=== PATIENT | male | born 1960 | race Caucasian/White ===

== ENCOUNTER 2017-07-27 19:19 | Emergency (ER) | payer OTHER ==
[2017-07-27 19:24] VITALS: PULSE 86; RESP 18
[2017-07-27] MEDS ORDERED: GLUCAGON 1 MG/ML VIAL IVP STA (19:39)
[2017-07-27] MEDS ORDERED: METOCLOPRAMIDE 5 MG/ML 2 ML VIAL IVP STA (19:39)
--- NOTE | 2017-07-27 20:13 | ED ---
General Adult HPI <Urbano Villaseñor - Last Filed: 07/27/17 20:56> - General Source: patient, RN notes reviewed Mode of arrival: ambulatory Limitations: no limitations <Amanda Gonzales - Last Filed: 07/27/17 21:03> - General Chief complaint: ENT Stated complaint: food in throat Time Seen by Provider: 07/27/17 19:31 - History of Present Illness Initial comments: This is a 56-year-old male who presents to the emergency department with chief complaint of "food in throat." Patient states that at approximately 1:30 PM this afternoon patient was eating and had a piece of chicken stuck in his throat. Patient states that he has been trying to drink but nothing is going down. He states that he feels like it is stuck upper to mid sternal area. He describes the sensation as sore and burning. He states he has been spitting. Patient states that he has a history of esophageal impaction. He was seen by Dr. Cao, had an endoscopy and esophageal dilation. This occurred in 2015. Patient denies any nausea. He denies any difficulty breathing or shortness of breath. Denies fever, chills, abdominal pain, constipation or diarrhea, dysuria or hematuria, numbness or tingling, headache or vision changes. (Amanda Gonzales) - Related Data Home Medications Medication Instructions Recorded Confirmed No Known Home Medications [No 12/11/15 07/27/17 Known Home Medications] Allergies Allergy/AdvReac Type Severity Reaction Status Date / Time No Known Allergies Allergy Verified 07/27/17 19:58 Review of Systems ROS Other: All systems not noted in ROS Statement are negative. <Urbano Villaseñor - Last Filed: 07/27/17 20:56> ROS Other: All systems not noted in ROS Statement are negative. <Amanda Gonzales - Last Filed: 07/27/17 21:03> ROS Statement: Those systems with pertinent positive or pertinent negative responses have been documented in the HPI. Past Medical History Past Medical History: No Reported History History of Any Multi-Drug Resistant Organisms: None Reported Past Surgical History: No Surgical Hx Reported Past Psychological History: No Psychological Hx Reported Smoking Status: Current every day smoker Past Alcohol Use History: Occasional Past Drug Use History: None Reported <Amanda Gonzales - Last Filed: 07/27/17 21:03> General Exam <Urbano Villaseñor - Last Filed: 07/27/17 20:56> Limitations: no limitations <Amanda Gonzales - Last Filed: 07/27/17 21:03> - General Exam Comments Initial Comments: General: Awake and alert, well-developed; in no apparent distress. HEENT: Head atraumatic, normocephalic. Pupils are equal, round and reactive to light. Extraocular movements intact. Oropharynx moist. Neck: Supple. Normal ROM. Cardiovascular: Regular rate and rhythm. No murmurs, rubs or gallops. Chest symmetrical. Respiratory: Lungs clear to auscultation bilaterally. No wheezes, rales or rhonchi. Normal respiratory effort with no use of accessory muscles. Skin: [place], warm and dry without rashes or lesions. Neurological: Alert and oriented x3. CN II-XII grossly intact. Speech is fluent and answers are appropriate. No focal neuro deficits. Psychiatric: Normal mood and affect. No overt signs of depression or anxiety noted. (Amanda Gonzales) Course <Urbano Villaseñor - Last Filed: 07/27/17 20:56> <Amanda Gonzales - Last Filed: 07/27/17 21:03> Vital Signs 07/27/17 19:21 Temperature 97.8 F Pulse Rate 86 Respiratory 18 Rate Blood Pressure 139/87 O2 Sat by Pulse 98 Oximetry - Reevaluation(s) Reevaluation #1: 07/27/17 20:57 Patient reevaluated and felt like something moved however still was unable to drink and felt nauseated. Following this patient again reevaluated and did feel much better. Patient was able to tolerate a full glass of water without difficulty. Patient advised to follow-up with gastroenterology for scope. Patient advised liquid diet tomorrow. (Urbano Villaseñor) Medical Decision Making <Urbano Villaseñor - Last Filed: 07/27/17 20:56> - Radiology Data Radiology results: report reviewed <Amanda Gonzales - Last Filed: 07/27/17 21:03> - Medical Decision Making This is a 56-year-old male who presents to the emergency department for evaluation of esophageal impaction. Patient states that at approximately 1:30 this afternoon a piece of chicken became lodged in his esophagus. Patient states that he has a history of this happening multiple times in the past. While in the emergency department patient's vital signs are stable and he is in no acute distress. Patient was given glucagon and Reglan and had a delayed disimpaction response. Chest x-ray revealed no acute abnormalities. Patient was able to drink a glass of water without any difficulty. Patient will be discharged home and he is to follow-up with Dr. Cao. He is in agreement with plan and voices understanding. (Amanda Gonzales) - Radiology Data Chest x-ray impression: No acute cardiopulmonary process. No radiopaque foreign body appreciated. (Amanda Gonzales) Disposition <Urbano Villaseñor - Last Filed: 07/27/17 20:56> Time of Disposition: 21:03 <Amanda Gonzales - Last Filed: 07/27/17 21:03> Clinical Impression: Esophageal obstruction due to food impaction Disposition: HOME SELF-CARE Condition: Good Instructions: Esophageal Foreign Body (ED) Additional Instructions: Please follow up with gastroenterology, Dr. Cao within 1-2 days. Please follow up with primary care provider within 1-2 days. Return to emergency department if symptoms should worsen or any concerns arise. Referrals: None,Stated [Primary Care Provider] - 1-2 days Cyndy Cao MD [STAFF PHYSICIAN] - 1-2 days
--- NOTE | 2017-07-27 20:16 | XR ---
EXAMINATION TYPE: XR chest 2V DATE OF EXAM: 07/27/2017 COMPARISON: 12/12/2015 HISTORY: Retained foreign body approximately 3 inches below the sternal notch. Chest pain. TECHNIQUE: Frontal and lateral views of the chest are obtained. FINDINGS: There is no focal air space opacity, pleural effusion, or pneumothorax seen. The cardiac silhouette size is within normal limits. The osseous structures are intact. There is no radiopaque body seen. IMPRESSION: No acute cardiopulmonary process. No radiopaque foreign body appreciated.
[2017-07-27 21:19] VITALS: BP 141/86; TEMP 98.6
== END 2017-07-27 21:17 | disposition home or self-care (01) ==
LOC: EC 19:19
DX: T18.128A Food in esophagus causing other injury, initial encounter (principal); F17.200 Nicotine dependence, unspecified, uncomplicated
CPT/HCPCS: 71046; 99283; 96374; 96375; J1610; J2765

== ENCOUNTER 2020-12-12 10:51 | Emergency (ER) | payer OTHER ==
[2020-12-12 11:52] VITALS: BP 145/91; PULSE 61; RESP 16; TEMP 97.6
[2020-12-12 13:21] LABS: Appearance,Urine Clear (Clear); Bilirubin,Urine Negative (Negative); Blood,Urine Negative (Negative); Color,Urine Yellow; Glucose,Urine (UA) Negative (Negative); Ketones,Urine Negative (Negative); Leukocyte Esterase,Urine Negative (Negative); Nitrite,Urine Negative (Negative); PH, Urine 5.5 (5.0-8.0); Protein,Urine Negative (Negative); Specific Gravity,Urine 1.023 (1.001-1.035); Urobilinogen,Urine <2.0 mg/dL (<2.0)
== END 2020-12-12 13:10 ==
LOC: EC 10:51
DX: R10.9 Unspecified abdominal pain (principal); Z53.21 Procedure and treatment not carried out due to patient leaving prior to being seen by health care provider
CPT/HCPCS: 81003; 99499

== ENCOUNTER → 2024-01-16 | Outpatient (CLI) | payer OTHER ==
--- NOTE | 2024-01-16 20:37 | CT ---
EXAMINATION TYPE: CT abdomen pelvis w con CT DLP: 531.1 mGycm, Automated exposure control for dose reduction was used. DATE OF EXAM: 01/16/2024 2:18 PM COMPARISON: 09/24/2022 CLINICAL INDICATION:Male, 63 years old with history of K85.90 ACUTE PANCREATITIS WITHOUT NECROSIS OR INFE; pancreatitis TECHNIQUE: Axial CT abdomen pelvis w con;Sagittal and coronal reformats were created on a separate w orkstation. Contrast used:100 mL of Isovue 300 with IV Contrast, (none if empty) Oral contrast used: with Oral Contrast (none if empty) FINDINGS: LOWER CHEST: Unremarkable ABDOMEN diffuse low-attenuation with wedge-shaped area of increased attenuation possibly focal fatty sparing. LIVER: Unremarkable GALLBLADDER AND BILE DUCTS: Unremarkable. PANCREAS: Fluid collection arising from the pancreas measuring up to 10.4 x 9.0 cm.e hypodense area m ay be seen in the pancreatic tail series 3 image 28. SPLEEN: Unremarkable. ADRENAL GLANDS: Unremarkable. KIDNEYS AND URETERS: No evidence of hydronephrosis or renal calculus. The ureters are unremarkable. PELVIS BLADDER: Unremarkable REPRODUCTIVE: Unremarkable. ABDOMEN & PELVIS STOMACH AND BOWEL: No evidence of bowel obstruction. PERITONEUM/RETROPERITONEUM: No evidence of pneumoperitoneum or free fluid. VASCULATURE: No evidence of aortic aneurysm. MUSCULOSKELETAL: No acute osseous abnormalities LYMPH NODES: No gross evidence for lymphadenopathy. SOFT TISSUE/ABDOMINAL WALL: Unremarkable IMPRESSION: Large fluid collection appearing to arise from the pancreas. Underlying mass not excluded in the panc reatic tail. Further evaluation with MRI MRCP with IV contrast pancreatic mass protocol. Findings new from 09/24/2022 could be sequela of mass versus sequela prior pancreatitis correlate with history. Hepatic steatosis with focal fatty narrowing.
== END | disposition home or self-care (01) ==
LOC: RADCTMAIN 09:22
PROVIDERS: ATTEND Internal Medicine Gastroenterology
DX: K85.90 Acute pancreatitis without necrosis or infection, unspecified (principal); K76.0 Fatty (change of) liver, not elsewhere classified
CPT/HCPCS: 74177; Q9967

== ENCOUNTER 2024-03-30 07:56 | Inpatient (IN) | payer OTHER ==
[2024-03-30] MEDS: ONDANSETRON 4 MG/2 ML VIAL IVP STA ×2 (08:28→12:26)
[2024-03-30] MEDS: SODIUM CHLORIDE 0.9% 1,000 ML IV STA (08:28)
[2024-03-30] MEDS: HYDROmorphone 0.5 MG/0.5 ML SYRINGE IVP STA (08:30)
--- NOTE | 2024-03-30 08:36 | ED ---
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 Patient states he has not drank in over a year. Patient states he recently had the stent removed at [facility] 1 week ago and now he is experiencing epigastric pain it feels like the pain he had prior to having the stent placed. Patient states has been vomiting for 12 hours. Patient [place] any fever chills. Patient denies any chest pain. Patient denies any shortness of breath. - Related Data Home Medications Medication Instructions Recorded Confirmed Ibuprofen [Motrin Ib] 800 mg PO TID PRN 03/30/24 03/30/24 oxyCODONE-APAP 10-325MG [Percocet 1 tab PO Q6HR PRN 03/30/24 03/30/24 10-325 mg] Allergies Allergy/AdvReac Type Severity Reaction Status Date / Time No Known Allergies Allergy Verified 03/30/24 11:06 Review of Systems ROS Statement: Those systems with pertinent positive or pertinent negative responses have been documented in the HPI. ROS Other: All systems not noted in ROS Statement are negative. Past Medical History Past Medical History: No Reported History History of Any Multi-Drug Resistant Organisms: None Reported Past Surgical History: No Surgical Hx Reported Additional Past Surgical History / Comment(s): abd surgery Past Psychological History: No Psychological Hx Reported Smoking Status: Current every day smoker Past Alcohol Use History: Occasional Past Drug Use History: Marijuana General Exam - General Exam Comments Initial Comments: GENERAL: Patient is well-developed and well-nourished. Patient is nontoxic and well- hydrated and is in mild distress. ENT: Neck is soft and supple. No significant lymphadenopathy is noted. Oropharynx is clear. Moist mucous membranes. Neck has full range of motion without eliciting any pain. EYES: The sclera were anicteric and conjunctiva were pink and moist. Extraocular movements were intact and pupils were equal round and reactive to light. Eyelids were unremarkable. PULMONARY: Unlabored respirations. Good breath sounds bilaterally. No audible rales rhonchi or wheezing was noted. CARDIOVASCULAR: There is a regular rate and rhythm without any murmurs gallops or rubs. ABDOMEN: Epigastric abdominal pain SKIN: Skin is clear with no lesions or rashes and otherwise unremarkable. NEUROLOGIC: Patient is alert and oriented x3. Cranial nerves II through XII are grossly intact. Motor and sensory are also intact. Normal speech, volume and content. Symmetrical smile. MUSCULOSKELETAL: Normal extremities with adequate strength and full range of motion. LYMPHATICS: No significant lymphadenopathy is noted PSYCHIATRIC: Normal psychiatric evaluation. Limitations: no limitations Course Vital Signs 03/30/24 03/30/24 07:59 09:08 Temperature 97.6 F Pulse Rate 86 52 L Respiratory 20 18 Rate Blood Pressure 138/107 121/81 O2 Sat by Pulse 99 97 Oximetry Medical Decision Making - Medical Decision Making EKG is interpreted by myself but EKG shows a sinus bradycardia 59 bpm VA interval 143 QRS 110 QT interval is 466 QTc is 465. Patient's EKG shows T wave inversion in 1 2 and aVL as well as V1 and V3 Was pt. sent in by a medical professional or institution (LEILA Maki, PRINCIPAL MECHANICAL ENGINEER, urgent care, hospital, or fpc...) When possible be specific @ -No Did you speak to anyone other than the patient for history (EMS, parent, family, police, friend...)? What history was obtained from this source @ -No Did you review nursing and triage notes (agree or disagree)? Why? @ -I reviewed and agree with nursing and triage notes Were old charts reviewed (outside hosp., previous admission, EMS record, old EKG, old radiological studies, urgent care reports/EKG's, fpc records)? Report findings @ -No old charts were reviewed Differential Diagnosis? @ -Differential Abdominal Pain Men: Appendicitis, cholecystitis, diverticulosis, ischemic bowel, pancreatitis, hepatitis, UTI, gastroenteritis, AAA, incarcerated hernia, bowel obstruction, constipation, inflammatory bowel, hepatitis, peptic ulcer disease, splenic infarction, perforated viscus, testicular torsion, this is not meant to be an all-inclusive list EKG interpreted by me (3pts min.). @ -As above X-rays interpreted by me (1pt min.). @ -None done CT interpreted by me (1pt min.). @ -CT of the abdomen shows acute on chronic pancreatitis that shows a smaller pseudocyst. U/S interpreted by me (1pt. min.). @ -None done What testing was considered but not performed or refused? (CT, X-rays, U/S, labs)? Why? @ -None What meds were considered but not given or refused? Why? @ -None Did you discuss the management of the patient with other professionals (professionals i.e. , PA, PRINCIPAL MECHANICAL ENGINEER, lab, RT, psych nurse, nephrology social worker, tobacco checkout clerk, teacher, flight deck officer, manager of case)? Give summary @ -I spoke to Dr. Isaac about the case she reviewed the CAT scan and decided that the patient could be kept here. I spoke with Dr. Morris and he agreed to admit the patient admit the patient recommending orders Was smoking cessation discussed for >3mins.? @ -No Was critical care preformed (if so, how long)? @ -No Were there social determinants of health that impacted care today? How? (Homelessness, low income, unemployed, alcoholism, drug addiction, transportation, low edu. Level, literacy, decrease access to med. care, fpc, rehab)? @ -No Was there de-escalation of care discussed even if they declined (Discuss DNR or withdrawal of care, Hospice)? DNR status @ -No What co-morbidities impacted this encounter? (DM, HTN, Smoking, COPD, CAD, Cancer, CVA, ARF, Chemo, Hep., AIDS, mental health diagnosis, sleep apnea, morbid obesity)? @ -None Was patient admitted / discharged? Hospital course, mention meds given and route, prescriptions, significant lab abnormalities, going to OR and other pertinent info. @ -Patient will be admitted to the hospital to consult to Dr. Marlin Isaac is aware Dr. Jacobs is aware. I wrote admitting orders. Undiagnosed new problem with uncertain prognosis? @ -No Drug Therapy requiring intensive monitoring for toxicity (Heparin, Nitro, Insulin, Cardizem)? @ -No Were any procedures done? @ -No Diagnosis/symptom? @ -Acute on chronic pancreatitis Acute, or Chronic, or Acute on Chronic? @ -Acute on chronic Uncomplicated (without systemic symptoms) or Complicated (systemic symptoms)? @ -Complicated Side effects of treatment? @ -No Exacerbation, Progression, or Severe Exacerbation? @ -No Poses a threat to life or bodily function? How? (Chest pain, [place], [place], pneumonia, PE, COPD, DKA, ARF, appy, cholecystitis, CVA, Diverticulitis, Homicidal, S uicidal, threat to staff... and all critical care pts) @ -Yes this could lead to further complications and electrolyte abnormalities. - Lab Data Result diagrams: 03/30/24 08:31 03/30/24 08:31 Lab Results 03/30/24 03/30/24 03/30/24 Range/Units 08:31 08:31 08:31 WBC 11.8 H (3.8-10.6) k/uL RBC 3.80 L (4.30-5.90) m/uL Hgb 11.3 L (13.0-17.5) gm/dL Hct 35.2 L (39.0-53.0) % MCV 92.5 (80.0-100.0) fL MCH 29.6 (25.0-35.0) pg MCHC 32.0 (31.0-37.0) g/dL RDW 15.6 H (11.5-15.5) % Plt Count 469 H (150-450) k/uL MPV 7.4 Neutrophils % 83 % Lymphocytes % 11 % Monocytes % 4 % Eosinophils % 1 % Basophils % 0 % Neutrophils # 9.7 H (1.3-7.7) k/uL Lymphocytes # 1.3 (1.0-4.8) k/uL Monocytes # 0.5 (0-1.0) k/uL Eosinophils # 0.1 (0-0.7) k/uL Basophils # 0.0 (0-0.2) k/uL Hypochromasia Slight Sodium 136 L (137-145) mmol/L Potassium 3.1 L (3.5-5.1) mmol/L Chloride 97 L (98-107) mmol/L Carbon Dioxide 32 H (22-30) mmol/L Anion Gap 7 mmol/L BUN 12 (9-20) mg/dL Creatinine 0.57 L (0.66-1.25) mg/dL Est GFR (CKD-EPI)AfAm >90 (>60 ml/min/1.73 sqM) Est GFR (CKD-EPI)NonAf >90 (>60 ml/min/1.73 sqM) Glucose 93 (74-99) mg/dL Plasma Lactic Acid Asif 1.3 (0.7-2.0) mmol/L Calcium 9.0 (8.4-10.2) mg/dL Total Bilirubin 0.5 (0.2-1.3) mg/dL AST 16 L (17-59) U/L ALT 9 (4-49) U/L Alkaline Phosphatase 89 (38-126) U/L Troponin I (0.000-0.034) ng/mL Total Protein 6.2 L (6.3-8.2) g/dL Albumin 3.2 L (3.5-5.0) g/dL Amylase 105 (30-110) U/L Lipase 361 H (23-300) U/L 03/30/24 Range/Units 09:11 WBC (3.8-10.6) k/uL RBC (4.30-5.90) m/uL Hgb (13.0-17.5) gm/dL Hct (39.0-53.0) % MCV (80.0-100.0) fL MCH (25.0-35.0) pg MCHC (31.0-37.0) g/dL RDW (11.5-15.5) % Plt Count (150-450) k/uL MPV Neutrophils % % Lymphocytes % % Monocytes % % Eosinophils % % Basophils % % Neutrophils # (1.3-7.7) k/uL Lymphocytes # (1.0-4.8) k/uL Monocytes # (0-1.0) k/uL Eosinophils # (0-0.7) k/uL Basophils # (0-0.2) k/uL Hypochromasia Sodium (137-145) mmol/L Potassium (3.5-5.1) mmol/L Chloride (98-107) mmol/L Carbon Dioxide (22-30) mmol/L Anion Gap mmol/L BUN (9-20) mg/dL Creatinine (0.66-1.25) mg/dL Est GFR (CKD-EPI)AfAm (>60 ml/min/1.73 sqM) Est GFR (CKD-EPI)NonAf (>60 ml/min/1.73 sqM) Glucose (74-99) mg/dL Plasma Lactic Acid Asif (0.7-2.0) mmol/L Calcium (8.4-10.2) mg/dL Total Bilirubin (0.2-1.3) mg/dL AST (17-59) U/L ALT (4-49) U/L Alkaline Phosphatase (38-126) U/L Troponin I <0.012 (0.000-0.034) ng/mL Total Protein (6.3-8.2) g/dL Albumin (3.5-5.0) g/dL Amylase (30-110) U/L Lipase (23-300) U/L Disposition Clinical Impression: Acute on chronic pancreatitis Disposition: ADMITTED IP TO THIS HOSP Referrals: Tres Jacobs MD [Primary Care Provider] - 1-2 days Time of Disposition: 11:53
[2024-03-30 08:41] LABS: Basophils % (A) 0 %; Eosinophils # (A) 0.1 k/uL (0-0.7); Eosinophils % (A) 1 %; HCT 35.2 % (39.0-53.0); HGB 11.3 gm/dL (13.0-17.5); Hypochromasia Slight; Lymphocytes # (A) 1.3 k/uL (1.0-4.8); Lymphocytes % (A) 11 %; MCH 29.6 pg (25.0-35.0); MCV 92.5 fL (80.0-100.0); Mean Platelet Volume 7.4; Monocytes # (A) 0.5 k/uL (0-1.0); Monocytes % (A) 4 %; Neutrophils # (A) 9.7 k/uL (1.3-7.7); Neutrophils % (A) 83 %; Platelet Count 469 k/uL (150-450); RDW 15.6 % (11.5-15.5); WBC 11.8 k/uL (3.8-10.6)
[2024-03-30 09:00] LABS: ALT 9 U/L (4-49); AST 16 U/L (17-59); African American GFR (CKD) >90 (>60 ml/min/1.73 sqM); Albumin 3.2 g/dL (3.5-5.0); Alkaline Phosphatase 89 U/L (38-126); Amylase 105 U/L (30-110); Anion Gap 7 mmol/L; Blood Urea Nitrogen 12 mg/dL (9-20); Carbon Dioxide 32 mmol/L (22-30); Chloride 97 mmol/L (98-107); Glucose 93 mg/dL (74-99); Lipase 361 U/L (23-300); Non-African American GFR(CKD) >90 (>60 ml/min/1.73 sqM); Potassium 3.1 mmol/L (3.5-5.1); Sodium 136 mmol/L (137-145); Total Bilirubin 0.5 mg/dL (0.2-1.3); Total Protein 6.2 g/dL (6.3-8.2)
--- NOTE | 2024-03-30 10:33 | CT ---
EXAMINATION TYPE: CT abdomen pelvis w con CT DLP: 657.7 mGycm, Automated exposure control for dose reduction was used. DATE OF EXAM: 03/30/2024 10:11 AM COMPARISON: CT abdomen pelvis 01/16/2024, 09/24/2022 CLINICAL INDICATION:Male, 63 years old with history of History of pseudocyst and stent; Abdominal michael n s/p 8 days postop hx pseudocyst TECHNIQUE: Standard CT of the abdomen and pelvis following the administration of 100 cc of Isovue 3 00 IV contrast material. Coronal and sagittal reformats were performed. FINDINGS: LOWER CHEST: Posterior dependent subsegmental atelectasis is noted. ABDOMEN LIVER: There are at least 3 new hypodense lesions within the liver. Largest is within the left hepati c lobe measuring 1.5 cm (series 201, image 16). Additional lesion along the inferior margin of the ri ght hepatic lobe measuring 8 mm (series 201, image 32). Additional lesion within the right hepatic do me measuring 1 cm (series 201, image 11). GALLBLADDER AND BILE DUCTS: Unremarkable. PANCREAS: Atrophic appearance of the pancreas from prior examination with edematous appearance and in crease surrounding fluid. No pancreatic ductal dilatation. No pancreatic calcifications demonstrated. SPLEEN: Normal size with fluid extending into the hilum ADRENAL GLANDS: Unremarkable. KIDNEYS AND URETERS: No evidence of hydronephrosis or renal calculus. The kidneys enhance symmetrical ly. Contrast is demonstrated within both collecting systems on the delayed phase. PELVIS BLADDER: Incompletely distended but grossly unremarkable. REPRODUCTIVE: Coarse calcifications of the prostate gland are identified. ABDOMEN & PELVIS STOMACH AND BOWEL: New duodenal dilatation measuring up to 4.5 cm. Transition point identified involv ing the distal portion of the duodenum adjacent to pancreatic inflammatory changes (series 201, image 32). Distal colonic diverticulosis without evidence for acute diverticulitis. Decreased size of pseu docyst now measuring grossly 4.7 x 4.5 x 3.3 cm with drain identified which extends into the stomach. Surrounding inflammatory changes and ill-defined fluid along the inferior margin and lateral margin of the stomach has increased from prior examination. Wall thickening of the lesser curvature of the s tomach. PERITONEUM: No evidence of pneumoperitoneum. VASCULATURE: Minimal atherosclerotic calcifications are present throughout the abdominal aorta and it s branches. No evidence of aortic aneurysm. Portal venous system appears patent however there is sign ificant narrowing of the portal venous confluence due to surrounding fluid and inflammatory changes. Poor visualization of the splenic vein with surrounding collateral vessels in the splenic region. MUSCULOSKELETAL: No acute osseous abnormalities. Osteoarthritic changes of both hips. Degenerative ch anges of the spine. Most pronounced at L5-S1. Multilevel facet arthropathy lower lumbar spine. LYMPH NODES: No gross evidence for lymphadenopathy. SOFT TISSUE/ABDOMINAL WALL: Tiny fat filled umbilical hernia. IMPRESSION: 1. Acute on chronic pancreatitis with increased peripancreatic ill-defined fluid/inflammation. Decre ased size of previously seen perigastric pseudocyst with drainage catheter in place. 2. Proximal duodenal dilatation with focal transition point involving the distal duodenum suggesting possible stricture from pancreatic inflammation. 3. At least 3 new hypodense lesions measuring up to 1.5 cm within the liver suggesting possible small abscesses versus other etiologies. Consider further evaluation with MRI abdomen. 4. Focal narrowing of the portal venous confluence due to surrounding inflammatory changes/fluid. 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 [facility], , 03/30/2024 10:31 AM
[2024-03-30] MEDS: HYDROmorphone 1 MG/ML 1 ML SYRINGE IVP STA (12:25)
[2024-03-30] MEDS: SODIUM CHLORIDE 0.9% 1,000 ML IV ONE (12:26)
[2024-03-30] MEDS ORDERED: Potassium Replacement Protocol 1 EACH MISC MISCELLANE PRN (14:05)
[2024-03-30] MEDS: POTASSIUM CHLORIDE 10 MEQ in WATER FOR INJECTION 1 100ML.BAG IVPB SCH (14:26)
[2024-03-30] MEDS: PANTOPRAZOLE 40 MG/10 ML VIAL IVP SCH (14:28)
--- NOTE | 2024-03-30 14:45 | P.CONS ---
History of Present Illness - Reason for Consult Consult date: 03/30/24 Acute on chronic pancreatitis, liver lesions Requesting physician: Matheus Corona - Chief Complaint Abdominal pain - History of Present Illness Pleasant 63-year-old male who presented to the emergency department complaining of abdominal pain. 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 He states he has had abdominal pain for last 10 months and that is why he has been following with Dr. Lewis's office and [facility]. He had a biliary stent placed maybe a couple months ago he is not sure which she had both a metal and plastic stent placed. He had the metal stent removed about a week ago at [facility] with a plastic stent still in place. since then he states that he has been having abdominal pain but it had gotten worse yesterday. States last night started having increased epigastric pain so Meding. He had 5-6 episodes of vomiting green bile-like and dark emesis. Last emesis was at 11:00 this morning very small amount. Epigastric pain feels like a similar episode when he had the acute pancreatitis prior to the stent being placed. He had a CT of the abdomen and pelvis with contrast reporting acute on chronic pancreatitis, proximal duodenal dilation and 3 new liver lesions and possible splenic vein occlusion. This patient was recommended from gastroenterology to be a ER to ER transfer to [facility] however they were not accepting. Patient was admitted for treatment of pain and acute pancreatitis with gastroenterology on consult. Patient denies any alcohol in the last 1 years duration. Today's labs WBC 11.8 hemoglobin 11 hematocrit 35 platelet count 469,000 sodium 136 potassium 3.1 BUN 12 creatinine 0.57 total bilirubin 0.5 AST 16 ALT 9 alkaline phosphatase 89 amylase 105 lipase 361 Review of Systems REVIEW OF SYSTEMS: CARDIOPULMONARY: No chest pain or shortness of breath. Gastrointestinal: Abdominal pain. Nausea and vomiting. No hematemesis, coffee- ground emesis. No rectal bleeding, or melena. GENITOURINARY: No dysuria or hematuria. MUSCULOSKELETAL: Reports normal range of motion., Joint pain. SKIN: No rashes. No jaundice. ENDOCRINE: No chills, fevers. No excessive weight gain or loss. No polydipsia or polyuria. PSYCHIATRIC: Unremarkable. NEUROLOGY: No change in mental status. Denies dizziness, headache. ENT: Vision unremarkable. CONSTITUTIONAL: No recent weight loss. No fever, chills, night sweats. Past Medical History Past Medical History: No Reported History History of Any Multi-Drug Resistant Organisms: None Reported Past Surgical History: No Surgical Hx Reported Additional Past Surgical History / Comment(s): abd surgery Past Psychological History: No Psychological Hx Reported Smoking Status: Current every day smoker Past Alcohol Use History: Occasional Past Drug Use History: Marijuana Medications and Allergies Home Medications Medication Instructions Recorded Confirmed Type Ibuprofen [Motrin Ib] 800 mg PO TID PRN 03/30/24 03/30/24 History oxyCODONE-APAP 10-325MG [Percocet 1 tab PO Q6HR PRN 03/30/24 03/30/24 History 10-325 mg] Allergies Allergy/AdvReac Type Severity Reaction Status Date / Time No Known Allergies Allergy Verified 03/30/24 11:06 Physical Exam Vitals: Vital Signs Temp Pulse Resp BP Pulse Ox 03/30/24 12:00 60 18 126/87 97 03/30/24 09:08 52 L 18 121/81 97 03/30/24 07:59 97.6 F 86 20 138/107 99 Intake and Output 03/29/24 03/30/24 03/30/24 22:59 06:59 14:59 Other: Weight 58.513 kg General appearance: The patient is alert, oriented, appears in no acute distress. HET: Head is normocephalic and atraumatic. Conjunctiva pink. Sclera anicteric. Neck: Supple without lymphadenopathy. Trachea midline. Heart: Regular. Lungs: Equal expansion, normal respiratory effort. Abdomen: Soft, right upper quadrant and epigastric tenderness, nondistended. Skin: No rashes. No jaundice. Extremities: Normal skin color and turgor. No pedal edema. Neurological: No focal deficits. Alert and oriented x3. Results CBC & Chem 7: 03/30/24 08:31 03/30/24 08:31 Labs: Abnormal Lab Results - Last 24 Hours (Table) 03/30/24 03/30/24 Range/Units 08: 08:31 WBC 11.8 H (3.8-10.6) k/uL RBC 3.80 L (4.30-5.90) m/uL Hgb 11.3 L (13.0-17.5) gm/dL Hct 35.2 L (39.0-53.0) % RDW 15.6 H (11.5-15.5) % Plt Count 469 H (150-450) k/uL Neutrophils # 9.7 H (1.3-7.7) k/uL Sodium 136 L (137-145) mmol/L Potassium 3.1 L (3.5-5.1) mmol/L Chloride 97 L (98-107) mmol/L Carbon Dioxide 32 H (22-30) mmol/L Creatinine 0.57 L (0.66-1.25) mg/dL AST 16 L (17-59) U/L Total Protein 6.2 L (6.3-8.2) g/dL Albumin 3.2 L (3.5-5.0) g/dL Lipase 361 H (23-300) U/L Comments: CT abdomen pelvis with contrast Acute on chronic pancreatitis with increased peripancreatic ill-defined fluid /inflammation. Decreased size of previously seen perigastric pseudocyst with drainage catheter in place. Proximal duodenal dilation with focal transition point involving the distal duodenum suggesting possible stricture from pancreatic inflammation. At least 3 new hypodense lesions measuring up to 1.5 cm within the liver suggesting possible small abscesses versus other etiologies. Consider further evaluation with MRI abdomen. Focal narrowing of the portal venous confluence due to surrounding inflammatory changes/fluid. 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 Assessment and Plan (1) Acute on chronic pancreatitis Narrative/Plan: 63-year-old male history of alcohol pancreatitis with pseudocyst requiring previous stent which was partially removed at [facility] about a week ago. Now presenting back with right upper quadrant and epigastric pain with mildly elevated lipase and CT evidence for acute pancreatitis. Recently had a EGD with pseudocyst drainage and necrosectomy. Status post biliary stent with removal of metal stent with plastic stent in place. Recommended transfer to [facility] however they are not accepting. Will continue to treat symptomatically. IV hydration, pain medication and antiemetics. Current Visit: Yes Status: Acute Code(s): K85.90 - ACUTE PANCREATITIS WITHOUT NECROSIS OR INFECTION, UNSP; K86.1 - OTHER CHRONIC PANCREATITIS SNOMED Code(s): 453043820 (2) Liver lesion Narrative/Plan: Consider MRI of liver Current Visit: Yes Status: Acute Code(s): K76.9 - LIVER DISEASE, UNSPECIFIED SNOMED Code(s): 651355849 (3) Abdominal pain Current Visit: Yes Status: Acute Code(s): R10.9 - UNSPECIFIED ABDOMINAL PAIN SNOMED Code(s): 68794944 Plan: 1. Continue symptomatic and supportive care 2. Antiemetics as needed 3. Pain medication as needed 4. Aggressive IV hydration 5. Protonix for GI prophylaxis 6. Replace potassium per protocol 7. Keep n.p.o. 8. Repeat CBC, CMP tomorrow Thank you for this consultation, we will continue to follow Dr. Francisco Cao I agree with the dictator's note, documented as a scribe by Carolee Causey.
[2024-03-30] MEDS: HYDROmorphone 0.5 MG/0.5 ML SYRINGE IVP PRN (15:28)
[2024-03-30] MEDS: ONDANSETRON 4 MG/2 ML VIAL IVP PRN (20:30)
[2024-03-31 08:39] LABS: Basophils % (A) 0 %; Eosinophils # (A) 0.2 k/uL (0-0.7); Eosinophils % (A) 2 %; HCT 31.7 % (39.0-53.0); HGB 9.9 gm/dL (13.0-17.5); Hypochromasia Moderate; Lymphocytes # (A) 1.3 k/uL (1.0-4.8); Lymphocytes % (A) 17 %; MCH 29.4 pg (25.0-35.0); MCHC 31.3 g/dL (31.0-37.0); MCV 93.9 fL (80.0-100.0); Mean Platelet Volume 7.6; Monocytes # (A) 0.4 k/uL (0-1.0); Monocytes % (A) 5 %; Neutrophils # (A) 5.6 k/uL (1.3-7.7); Neutrophils % (A) 74 %; Platelet Count 384 k/uL (150-450); RBC 3.37 m/uL (4.30-5.90); RDW 15.9 % (11.5-15.5); WBC 7.6 k/uL (3.8-10.6)
[2024-03-31 08:58] LABS: ALT <6 U/L (4-49); AST 15 U/L (17-59); African American GFR (CKD) >90 (>60 ml/min/1.73 sqM); Albumin 2.4 g/dL (3.5-5.0); Albumin/Globulin Ratio 0.9; Alkaline Phosphatase 72 U/L (38-126); Anion Gap 11 mmol/L; Blood Urea Nitrogen 11 mg/dL (9-20); Calcium 8.2 mg/dL (8.4-10.2); Carbon Dioxide 21 mmol/L (22-30); Chloride 104 mmol/L (98-107); Globulin 2.7 g/dL; Glucose 61 mg/dL (74-99); Non-African American GFR(CKD) >90 (>60 ml/min/1.73 sqM); Potassium 3.6 mmol/L (3.5-5.1); Sodium 136 mmol/L (137-145); Total Bilirubin 0.4 mg/dL (0.2-1.3); Total Protein 5.1 g/dL (6.3-8.2)
[2024-03-31] MEDS: SODIUM CHLORIDE 0.9% 1,000 ML IV STA (12:42)
[2024-03-31 15:57] VITALS: BMI 18.5
--- NOTE | 2024-03-31 23:22 | PN ---
PROGRESS NOTE DATE OF SERVICE: 03/31/2024 CHIEF COMPLAINT: Chronic pancreatitis with nausea and vomiting, and hematemesis. HISTORY OF PRESENT ILLNESS: This gentleman is doing a bit better. Nausea is improved. He has had no fever or chills. Pain is improved. PHYSICAL EXAMINATION: CHEST: Clear. CARDIAC: Normal. ABDOMEN: Soft and less tender. Bowel sounds are present. IMPRESSION: 1. Chronic pancreatitis with pseudocyst. 2. Dehydration. 3. Nausea and vomiting. PLAN: Advance diet and continue to monitor his symptoms. MMODL / IJN: [id number] /
--- NOTE | 2024-04-01 02:25 | HP ---
HISTORY AND PHYSICAL CHIEF COMPLAINT: Intractable abdominal pain and vomiting. HISTORY OF PRESENT ILLNESS: Another admission for this 63-year-old white male. He came to emergency room. He developed acute epigastric pain with nausea and vomiting of coffee-ground appearing materials. He has a history of chronic alcoholism with a pancreatic pseudocyst which is being treated at [facility]. A stent had been placed between the cyst and his GI tract for internal management of the pancreatic pseudocyst. The stent was recently removed. He redeveloped the pain and came to the emergency room with assistance. He had no confusion, diarrhea, melena, hematochezia, etc. Past medical history, family history and personal and social histories are all otherwise unremarkable or unchanged. PHYSICAL EXAMINATION: VITAL SIGNS: Normal. HEAD, EARS, EYES, NOSE, MOUTH AND THROAT: Normal. CHEST: Clear. CARDIAC: Normal. ABDOMEN: Flat and tender over the epigastrium. There are no masses. Bowel sounds are present. EXTREMITIES: Normal. NEUROLOGICAL: Intact. IMPRESSION: 1. Intractable nausea, vomiting, and epigastric pain. 2. History of chronic pancreatitis with pseudocyst. PLAN: 1. Bed rest. 2. IV fluids. 3. Analgesics. 4. Follow laboratory studies. MMODL / IJN: [id number] /
--- NOTE | 2024-04-01 07:21 | P.PN ---
Subjective Progress Note Date: 03/31/24 (Late entry. Patient seen 03/31/2024 approximately 0815) Principal diagnosis: Pancreatitis Pleasant 63-year-old male who presented to the emergency department complaining of abdominal pain. 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 He states he has had abdominal pain for last 10 months and that is why he has been following with Dr. Lewis's office and [facility]. He had a biliary stent placed maybe a couple months ago he is not sure which she had both a metal and plastic stent placed. He had the metal stent removed about a week ago at [facility] with a plastic stent still in place. since then he states that he has been having abdominal pain but it had gotten worse yesterday. States last night started having increased epigastric pain so Meding. He had 5-6 episodes of vomiting green bile-like and dark emesis. Last emesis was at 11:00 this morning very small amount. Epigastric pain feels like a similar episode when he had the acute pancreatitis prior to the stent being placed. He had a CT of the abdomen and pelvis with contrast reporting acute on chronic pancreatitis, proximal duodenal dilation and 3 new liver lesions and possible splenic vein occlusion. This patient was recommended from gastroenterology to be a ER to ER transfer to [facility] however they were not accepting. Patient was admitted for treatment of pain and acute pancreatitis with gastroenterology on consult. Patient denies any alcohol in the last 1 years duration. Today's labs WBC 11.8 hemoglobin 11 hematocrit 35 platelet count 469,000 sodium 136 potassium 3.1 BUN 12 creatinine 0.57 total bilirubin 0.5 AST 16 ALT 9 alkaline phosphatase 89 amylase 105 lipase 361 03/31/2024 Patient was seen today as a follow-up for acute on chronic pancreatitis. States abdominal pain slightly better. No further nausea and vomiting. No diarrhea. Patient's afebrile. Potassium improved to 3.6 after supplementation. Otherwise labs unremarkable. Objective - Vital Signs Vital signs: Vital Signs Temp 97.6 F 04/01/24 01:15 Pulse 54 L 04/01/24 01:15 Resp 17 04/01/24 01:15 BP 124/75 04/01/24 01:15 Pulse Ox 100 04/01/24 01:15 FiO2 Intake & Output 03/31/24 04/01/24 04/01/24 18:59 06:59 18:59 Weight 58.513 kg Other: Voiding Method Toilet # Voids 4 2 - Exam General appearance: The patient is alert, oriented, appears in no acute distress. HET: Head is normocephalic and atraumatic. Conjunctiva pink. Sclera anicteric. Neck: Supple without lymphadenopathy. Abdomen: Soft, upper abdominal tenderness, nondistended with bowel sounds. No guarding or rigidity. Extremities: Normal skin color and turgor. No pedal edema Skin: No rashes, no jaundice Neurological: No focal deficits. Alert and oriented. - Labs CBC & Chem 7: 03/31/24 08:29 03/31/24 08:29 Labs: Abnormal Lab Results - Last 24 Hours (Table) 03/31/24 03/31/24 Range/Units 08:29 08:29 RBC 3.37 L (4.30-5.90) m/uL Hgb 9.9 L (13.0-17.5) gm/dL Hct 31.7 L (39.0-53.0) % RDW 15.9 H (11.5-15.5) % Sodium 136 L (137-145) mmol/L Carbon Dioxide 21 L (22-30) mmol/L Creatinine 0.59 L (0.66-1.25) mg/dL Glucose 61 L (74-99) mg/dL Calcium 8.2 L (8.4-10.2) mg/dL AST 15 L (17-59) U/L Total Protein 5.1 L (6.3-8.2) g/dL Albumin 2.4 L (3.5-5.0) g/dL Assessment and Plan (1) Acute on chronic pancreatitis Narrative/Plan: 63-year-old male history of alcohol pancreatitis with pseudocyst requiring pr evious stent which was partially removed at [facility] about a week ago. Now presenting back with right upper quadrant and epigastric pain with mildly elevated lipase and CT evidence for acute pancreatitis. Recently had a EGD with pseudocyst drainage and necrosectomy. Status post biliary stent with removal of metal stent with plastic stent in place. Recommended transfer to [facility] however they are not accepting. Will continue to treat symptomatically. IV hydration, pain medication and antiemetics. Current Visit: Yes Status: Acute Code(s): K85.90 - ACUTE PANCREATITIS WITHOUT NECROSIS OR INFECTION, UNSP; K86.1 - OTHER CHRONIC PANCREATITIS SNOMED Code(s): 136406078 (2) Liver lesion Narrative/Plan: Consider MRI of liver Current Visit: Yes Status: Acute Code(s): K76.9 - LIVER DISEASE, UNSPECIFIED SNOMED Code(s): 679572413 (3) Abdominal pain Current Visit: Yes Status: Acute Code(s): R10.9 - UNSPECIFIED ABDOMINAL PAIN SNOMED Code(s): 11631739 Plan: 1. Continue symptomatic and supportive care 2. Antiemetics as needed 3. Pain medication as needed 4. Aggressive IV hydration 5. Protonix for GI prophylaxis 6. Monitor electrolytes 7. Keep n.p.o. will add ice chips 8. No further workup indicated. Anticipate discharge in the next 48-72 hours. Patient instructed to follow-up with his pot puncher at [facility] Thank you for this consultation, we will continue to follow Dr. Francisco Cao I agree with the dictator's note, documented as a scribe by Carolee Causey.
[2024-04-01 11:08] LABS: Basophils % (A) 0 %; Eosinophils # (A) 0.2 k/uL (0-0.7); Eosinophils % (A) 2 %; HCT 31.5 % (39.0-53.0); HGB 9.9 gm/dL (13.0-17.5); Hypochromasia Moderate; Lymphocytes # (A) 1.1 k/uL (1.0-4.8); Lymphocytes % (A) 13 %; MCH 29.1 pg (25.0-35.0); MCHC 31.3 g/dL (31.0-37.0); MCV 92.9 fL (80.0-100.0); Mean Platelet Volume 7.4; Monocytes # (A) 0.4 k/uL (0-1.0); Monocytes % (A) 4 %; Neutrophils # (A) 6.4 k/uL (1.3-7.7); Neutrophils % (A) 79 %; Platelet Count 358 k/uL (150-450); RBC 3.39 m/uL (4.30-5.90); RDW 15.9 % (11.5-15.5); WBC 8.1 k/uL (3.8-10.6)
[2024-04-01 11:15] LABS: ALT <6 U/L (4-49); AST 13 U/L (17-59); African American GFR (CKD) >90 (>60 ml/min/1.73 sqM); Albumin 2.4 g/dL (3.5-5.0); Albumin/Globulin Ratio 0.9; Alkaline Phosphatase 71 U/L (38-126); Anion Gap 7 mmol/L; Blood Urea Nitrogen 6 mg/dL (9-20); Calcium 7.9 mg/dL (8.4-10.2); Carbon Dioxide 23 mmol/L (22-30); Chloride 103 mmol/L (98-107); Globulin 2.6 g/dL; Glucose 71 mg/dL (74-99); Non-African American GFR(CKD) >90 (>60 ml/min/1.73 sqM); Potassium 3.4 mmol/L (3.5-5.1); Sodium 133 mmol/L (137-145); Total Bilirubin 0.4 mg/dL (0.2-1.3)
[2024-04-01] MEDS: SODIUM CHLORIDE 0.9% 1,000 ML IV SCH (11:34)
[2024-04-01] MEDS: NICOTINE 14MG/24HR PATCH TRANSDERM SCH (13:13)
--- NOTE | 2024-04-01 13:50 | P.PN ---
Subjective Progress Note Date: 04/01/24 Principal diagnosis: Pancreatitis Pleasant 63-year-old male who presented to the emergency department complaining of abdominal pain. 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 He states he has had abdominal pain for last 10 months and that is why he has been following with Dr. Lewis's office and [facility]. He had a biliary stent placed maybe a couple months ago he is not sure which she had both a metal and plastic stent placed. He had the metal stent removed about a week ago at [facility] with a plastic stent still in place. since then he states that he has been having abdominal pain but it had gotten worse yesterday. States last night started having increased epigastric pain so Meding. He had 5-6 episodes of vomiting green bile-like and dark emesis. Last emesis was at 11:00 this morning very small amount. Epigastric pain feels like a similar episode when he had the acute pancreatitis prior to the stent being placed. He had a CT of the abdomen and pelvis with contrast reporting acute on chronic pancreatitis, proximal duodenal dilation and 3 new liver lesions and possible splenic vein occlusion. This patient was recommended from gastroenterology to be a ER to ER transfer to [facility] however they were not accepting. Patient was admitted for treatment of pain and acute pancreatitis with gastroenterology on consult. Patient denies any alcohol in the last 1 years duration. Today's labs WBC 11.8 hemoglobin 11 hematocrit 35 platelet count 469,000 sodium 136 potassium 3.1 BUN 12 creatinine 0.57 total bilirubin 0.5 AST 16 ALT 9 alkaline phosphatase 89 amylase 105 lipase 361 03/31/2024 Patient was seen today as a follow-up for acute on chronic pancreatitis. States abdominal pain slightly better. No further nausea and vomiting. No diarrhea. Patient's afebrile. Potassium improved to 3.6 after supplementation. Otherwise labs unremarkable. 04/01/2024 Patient seen and examined today as a follow-up. States they gave him a XL at [facility] when she yesterday evening and following that he started having abdominal pain mostly in the upper abdomen followed by emesis. Denies any coffee-ground or hematemesis. States he still has abdominal pain only had a small emesis this morning bile in color. Objective - Vital Signs Vital signs: Vital Signs Temp 97.6 F 04/01/24 01:15 Pulse 65 09/19/24 07:04 Resp 17 04/01/24 07:04 BP 134/79 04/01/24 07:04 Pulse Ox 96 04/01/24 07:04 FiO2 Intake & Output 03/31/24 04/01/24 04/01/24 18:59 06:59 18:59 Weight 58.513 kg Other: Voiding Method Toilet # Voids 4 2 - Exam General appearance: The patient is alert, oriented, appears in no acute distress. HET: Head is normocephalic and atraumatic. Conjunctiva pink. Sclera anicteric. Neck: Supple without lymphadenopathy. Abdomen: Soft, upper abdominal tenderness, nondistended with bowel sounds. No guarding or rigidity. Extremities: Normal skin color and turgor. No pedal edema Skin: No rashes, no jaundice Neurological: No focal deficits. Alert and oriented. - Labs CBC & Chem 7: 04/01/24 10:45 04/01/24 10:45 Assessment and Plan (1) Acute on chronic pancreatitis Narrative/Plan: 63-year-old male history of alcohol pancreatitis with pseudocyst requiring previous stent which was partially removed at [facility] about a week ago. Now presenting back with right upper quadrant and epigastric pain with mildly elevated lipase and CT evidence for acute pancreatitis. Recently had a EGD with pseudocyst drainage and necrosectomy. Status post biliary stent with removal of metal stent with plastic stent in place. Recommended transfer to [facility] however they are not accepting. Will continue to treat symptomatically. IV hydration, pain medication and antiemetics. Current Visit: Yes Status: Acute Code(s): K85.90 - ACUTE PANCREATITIS WITHOUT NECROSIS OR INFECTION, UNSP; K86.1 - OTHER CHRONIC PANCREATITIS SNOMED Code(s): 731413441 (2) Liver lesion Current Visit: Yes Status: Acute Code(s): K76.9 - LIVER DISEASE, UNSPECIFIED SNOMED Code(s): 290079651 (3) Abdominal pain Current Visit: Yes Status: Acute Code(s): R10.9 - UNSPECIFIED ABDOMINAL PAIN SNOMED Code(s): 26697151 Plan: 1. Continue symptomatic and supportive care 2. Antiemetics as needed 3. Pain medication as needed 4. Aggressive IV hydration 5. Protonix for GI prophylaxis 6. Replace potassium per protocol 7. Clear liquid diet ordered 8. No further workup indicated. Patient instructed to follow-up with his coin machine servicer repairer at [facility] Thank you for this consultation, we will continue to follow Dr. Francisco Cao I agree with the dictator's note, documented as a scribe by Carolee Causey.
[2024-04-01] MEDS: oxyCODONE-APAP 10-325MG 1 EACH TAB PO PRN (18:12)
[2024-04-01 18:34] LABS: Anisocytosis Slight; Basophils % (A) 0 %; Eosinophils # (A) 0.1 k/uL (0-0.7); Eosinophils % (A) 2 %; HCT 35.1 % (39.0-53.0); Hypochromasia Marked; Lymphocytes # (A) 1.4 k/uL (1.0-4.8); Lymphocytes % (A) 15 %; MCH 29.4 pg (25.0-35.0); MCHC 31.3 g/dL (31.0-37.0); MCV 93.9 fL (80.0-100.0); Mean Platelet Volume 7.6; Monocytes # (A) 0.4 k/uL (0-1.0); Monocytes % (A) 4 %; Neutrophils # (A) 7.1 k/uL (1.3-7.7); Neutrophils % (A) 77 %; Platelet Count 428 k/uL (150-450); RBC 3.74 m/uL (4.30-5.90); WBC 9.2 k/uL (3.8-10.6)
[2024-04-02 01:33] LABS: Amylase 48 U/L (23-121); Blood Urea Nitrogen 5.4 mg/dL (9.0-27.0); Carbon Dioxide 22.5 mmol/L (21.6-31.8); Chloride 100 mmol/L (96-109); Glucose 91 mg/dL (70-110); Lipase 27 U/L (14-60); Potassium 3.7 mmol/L (3.5-5.5); Sodium 135 mmol/L (135-145)
[2024-04-02 01:34] LABS: ALT 6 U/L (10-49); AST 11 U/L (14-35); Albumin 3.1 g/dL (3.8-4.9); Albumin/Globulin Ratio 1.11 Ratio (1.60-3.17); Alkaline Phosphatase 80 U/L (41-126); Calcium 8.5 mg/dL (8.7-10.3); Globulin 2.8 g/dL (1.6-3.3); Total Bilirubin <0.2 mg/dL (0.3-1.2); Total Protein 5.9 g/dL (6.2-8.2)
--- NOTE | 2024-04-02 08:06 | P.PN ---
Subjective Progress Note Date: 04/02/24 Principal diagnosis: Pancreatitis Pleasant 63-year-old male who presented to the emergency department complaining of abdominal pain. 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 He states he has had abdominal pain for last 10 months and that is why he has been following with Dr. Lewis's office and [facility]. He had a biliary stent placed maybe a couple months ago he is not sure which she had both a metal and plastic stent placed. He had the metal stent removed about a week ago at [facility] with a plastic stent still in place. since then he states that he has been having abdominal pain but it had gotten worse yesterday. States last night started having increased epigastric pain so Meding. He had 5-6 episodes of vomiting green bile-like and dark emesis. Last emesis was at 11:00 this morning very small amount. Epigastric pain feels like a similar episode when he had the acute pancreatitis prior to the stent being placed. He had a CT of the abdomen and pelvis with contrast reporting acute on chronic pancreatitis, proximal duodenal dilation and 3 new liver lesions and possible splenic vein occlusion. This patient was recommended from gastroenterology to be a ER to ER transfer to [facility] however they were not accepting. Patient was admitted for treatment of pain and acute pancreatitis with gastroenterology on consult. Patient denies any alcohol in the last 1 years duration. Today's labs WBC 11.8 hemoglobin 11 hematocrit 35 platelet count 469,000 sodium 136 potassium 3.1 BUN 12 creatinine 0.57 total bilirubin 0.5 AST 16 ALT 9 alkaline phosphatase 89 amylase 105 lipase 361 03/31/2024 Patient was seen today as a follow-up for acute on chronic pancreatitis. States abdominal pain slightly better. No further nausea and vomiting. No diarrhea. Patient's afebrile. Potassium improved to 3.6 after supplementation. Otherwise labs unremarkable. 04/01/2024 Patient seen and examined today as a follow-up. States they gave him a XL at [facility] when she yesterday evening and following that he started having abdominal pain mostly in the upper abdomen followed by emesis. Denies any coffee-ground or hematemesis. States he still has abdominal pain only had a small emesis this morning bile in color. 04/02/2024 Patient seen and examined today as a follow-up. States abdominal pain a little bit better, he is still requiring pain medication. He is tolerating clear liquid diet and is hungry requesting to eat. He has been afebrile. No nausea or vomiting. Objective - Vital Signs Vital signs: Vital Signs Temp 98.0 F 04/02/24 01:03 Pulse 62 04/02/24 01:03 Resp 17 04/02/24 01:03 BP 143/79 04/02/24 01:03 Pulse Ox 99 04/02/24 01:03 FiO2 Intake & Output 04/01/24 04/01/24 04/02/24 06:59 18:59 06:59 Intake Total 1560 Balance 1560 Intake: Intake, IV Titration 1560 Amount Sodium Chloride 0.9% 1, 1560 000 ml @ 130 mls/hr IV . Q7H42M [facility] Rx#:[id number] Other: Voiding Method Toilet # Voids 2 3 3 - Exam General appearance: The patient is alert, oriented, appears in no acute distress. HET: Head is normocephalic and atraumatic. Conjunctiva pink. Sclera anicteric. Neck: Supple without lymphadenopathy. Abdomen: Soft, upper abdominal tenderness, nondistended with bowel sounds. No guarding or rigidity. Extremities: Normal skin color and turgor. No pedal edema Skin: No rashes, no jaundice Neurological: No focal deficits. Alert and oriented. - Labs CBC & Chem 7: 04/01/24 18:07 04/01/24 18:07 Labs: Abnormal Lab Results - Last 24 Hours (Table) 04/01/24 04/01/24 04/01/24 Range/Units 10:45 10:45 18:07 RBC 3.39 L 3.74 L (4.30-5.90) m/uL Hgb 9.9 L 11.0 L (13.0-17.5) gm/dL Hct 31.5 L 35.1 L (39.0-53.0) % RDW 15.9 H 16.0 H (11.5-15.5) % Sodium 133 L (137-145) mmol/L Potassium 3.4 L (3.5-5.1) mmol/L Anion Gap (4.00-12.00) mmol/L BUN 6 L (9-20) mg/dL Creatinine 0.48 L (0.66-1.25) mg/dL BUN/Creatinine Ratio (12.00-20.00) Ratio Glucose 71 L (74-99) mg/dL Calcium 7.9 L (8.4-10.2) mg/dL Total Bilirubin (0.3-1.2) mg/dL AST 13 L (17-59) U/L ALT (10-49) U/L Total Protein 5.0 L (6.3-8.2) g/dL Albumin 2.4 L (3.5-5.0) g/dL Albumin/Globulin Ratio (1.60-3.17) Ratio / Range/Units 18:07 RBC (4.30-5.90) m/uL Hgb (13.0-17.5) gm/dL Hct (39.0-53.0) % RDW (11.5-15.5) % Sodium (137-145) mmol/L Potassium (3.5-5.1) mmol/L Anion Gap 12.50 H (4.00-12.00) mmol/L BUN 5.4 L (9-20) mg/dL Creatinine (0.66-1.25) mg/dL BUN/Creatinine Ratio 9.00 L (12.00-20.00) Ratio Glucose (74-99) mg/dL Calcium 8.5 L (8.4-10.2) mg/dL Total Bilirubin <0.2 L (0.3-1.2) mg/dL AST 11 L (17-59) U/L ALT 6 L (10-49) U/L Total Protein 5.9 L (6.3-8.2) g/dL Albumin 3.1 L (3.5-5.0) g/dL Albumin/Globulin Ratio 1.11 L (1.60-3.17) Ratio Assessment and Plan (1) Acute on chronic pancreatitis Narrative/Plan: 63-year-old male history of alcohol pancreatitis with pseudocyst requiring previous stent which was partially removed at [facility] about a week ago. Now presenting back with right upper quadrant and epigastric pain with m ildly elevated lipase and CT evidence for acute pancreatitis. Recently had a EGD with pseudocyst drainage and necrosectomy. Status post biliary stent with removal of metal stent with plastic stent in place. Recommended transfer to [facility] however they are not accepting. Will continue to treat symptomatically. IV hydration, pain medication and antiemetics. Current Visit: Yes Status: Acute Code(s): K85.90 - ACUTE PANCREATITIS WITHOUT NECROSIS OR INFECTION, UNSP; K86.1 - OTHER CHRONIC PANCREATITIS SNOMED Code(s): 540809269 (2) Liver lesion Current Visit: Yes Status: Acute Code(s): K76.9 - LIVER DISEASE, UNSPECIFIED SNOMED Code(s): 452111234 (3) Abdominal pain Current Visit: Yes Status: Acute Code(s): R10.9 - UNSPECIFIED ABDOMINAL PAIN SNOMED Code(s): 44698142 Plan: 1. Continue symptomatic and supportive care 2. Antiemetics as needed 3. Pain medication as needed, transition to oral pain medication for discharge 4. Advance to low-fat diet 5. Protonix for GI prophylaxis 6. Replace potassium per protocol 7. No further workup indicated. Patient instructed to follow-up with his gas troenterologist at [facility] within the next 1 to 2 weeks 8. Patient is cleared from gastroenterology for discharge Thank you for this consultation, we will sign off at this time. Dr. Francisco Cao I agree with the dictator's note, documented as a scribe by Carolee Causey.
[2024-04-02 08:54] VITALS: RESP 18
[2024-04-02 14:39] VITALS: BP 108/67; PULSE 63; TEMP 98.2
--- NOTE | 2024-04-03 10:22 | PN ---
PROGRESS NOTE DATE OF SERVICE: 04/01/2024 CHIEF COMPLAINT: Epigastric pain, chronic pancreatitis with pancreatic pseudocyst. HISTORY OF PRESENT ILLNESS: This gentleman was not vomiting, but he is still having significant amounts of epigastric pain. PHYSICAL EXAMINATION: ABDOMEN: He is tender over the epigastrium. There are no masses. CHEST: Clear. CARDIAC: Normal. VITAL SIGNS: Normal. IMPRESSION: Chronic pancreatitis and pancreatic pseudocyst. PLAN: Try advancing diet and increase activity while repeating labs. MMODL / IJN: [id number] /
--- NOTE | 2024-04-03 11:43 | DS ---
DISCHARGE SUMMARY CHIEF COMPLAINT: Epigastric pain and vomiting. HISTORY OF PRESENT ILLNESS AND PHYSICAL EXAM: Details of this man's history and physical can be found in the initial workup. LABORATORY STUDIES: While he was in the hospital, he had laboratory studies, details of which can be found in the laboratory section of his chart. COURSE IN HOSPITAL: After admission, he was placed on bedrest and started on intravenous fluids and analgesics. His pain slowly subsided. His pancreatic enzymes remained normal. He was given a trial on oral feedings which failed. The following day, the pain was improving and it was felt that his diet could be advanced as he could go home. He will go home on his regular diet and activity and follow up at [facility] for further management of his pancreatic pseudocyst. FINAL DIAGNOSES: 1. Pancreatic pseudocyst. 2. Intractable epigastric pain. 3. Intractable nausea and vomiting. OPERATIONS: None. CONSULTATIONS: None. He is improved. MMANANYAL / CHAITANYAN: [id number] /
== END 2024-04-02 16:49 | disposition home or self-care (01) | DRG 282 ==
LOC: EC 07:56 → 5NMEDONC 11:55 → UNDOADMIN 11:55 → 5NMEDONC 12:12 → INTOOBSV 12:12 → OBSVTOIN 12:13 → 5NMEDONC 15:33 → 4SSUR 18:14
PROVIDERS: ADMIT Family Medicine; ATTEND Family Medicine
DX: K85.20 Alcohol induced acute pancreatitis without necrosis or infection (principal); I82.890 Acute embolism and thrombosis of other specified veins; K92.0 Hematemesis; F10.20 Alcohol dependence, uncomplicated; K86.0 Alcohol-induced chronic pancreatitis; K76.9 Liver disease, unspecified; K86.3 Pseudocyst of pancreas; F17.210 Nicotine dependence, cigarettes, uncomplicated; E86.0 Dehydration; Z97.8 Presence of other specified devices
CPT/HCPCS: 36415; 74177; 80053; 82150; 83605; 83690; 84484; 85025; 93005; 96361; 96365; 96366; 96375; 96376; 99285

== ENCOUNTER 2024-04-12 18:00 | Observation (INO) | payer OTHER ==
[2024-04-12 19:25] LABS: Anisocytosis Slight; Basophils % (A) 0 %; Eosinophils # (A) 0.2 k/uL (0-0.7); Eosinophils % (A) 1 %; HCT 37.4 % (39.0-53.0); HGB 11.9 gm/dL (13.0-17.5); Hypochromasia Slight; Lymphocytes # (A) 1.5 k/uL (1.0-4.8); Lymphocytes % (A) 11 %; MCH 29.4 pg (25.0-35.0); MCHC 31.9 g/dL (31.0-37.0); MCV 92.3 fL (80.0-100.0); Mean Platelet Volume 7.6; Monocytes # (A) 0.6 k/uL (0-1.0); Monocytes % (A) 4 %; Neutrophils # (A) 11.7 k/uL (1.3-7.7); Neutrophils % (A) 82 %; Platelet Count 461 k/uL (150-450); RBC 4.05 m/uL (4.30-5.90); RDW 16.6 % (11.5-15.5); WBC 14.2 k/uL (3.8-10.6)
[2024-04-12 19:36] LABS: ALT 7 U/L (4-49); AST 18 U/L (17-59); African American GFR (CKD) >90 (>60 ml/min/1.73 sqM); Albumin 3.9 g/dL (3.5-5.0); Alkaline Phosphatase 76 U/L (38-126); Amylase 48 U/L (30-110); Anion Gap 15 mmol/L; Blood Urea Nitrogen 20 mg/dL (9-20); Calcium 9.8 mg/dL (8.4-10.2); Carbon Dioxide 26 mmol/L (22-30); Chloride 94 mmol/L (98-107); Glucose 86 mg/dL (74-99); Lipase 71 U/L (23-300); Non-African American GFR(CKD) >90 (>60 ml/min/1.73 sqM); Potassium 4.1 mmol/L (3.5-5.1); Sodium 135 mmol/L (137-145); Total Protein 7.3 g/dL (6.3-8.2)
[2024-04-12 19:38] LABS: Partial Thromboplastin Time 30.2 sec (22.0-30.0); Prothrombin Time 11.1 sec (10.0-12.5)
[2024-04-12] MEDS: ONDANSETRON 4 MG/2 ML VIAL IVP STA (19:51)
--- NOTE | 2024-04-12 19:51 | XR ---
EXAMINATION TYPE: XR KUB DATE OF EXAM: 04/12/2024 7:23 PM CLINICAL INDICATION: Male, 63 years old with history of abdominal pain; COMPARISON: None. TECHNIQUE: One radiographic view of the abdomen was obtained. FINDINGS: The bowel gas pattern is nonspecific without dilated loops of small or large bowel. . Fecal material and gas are demonstrated throughout the colon and rectum. There is no evidence for organomegaly or pneumoperitoneum. The osseous structures are intact. No ab normal calcifications are present. . Degeneration changes of the hips. Left upper quadrant catheter t ube. Multilevel degeneration changes spine. IMPRESSION: Nonspecific bowel gas pattern without radiographic evidence for acute process. [facility], , 04/12/2024 7:48 PM
[2024-04-12] MEDS: HYDROmorphone 1 MG/ML 1 ML SYRINGE IVP STA (19:54)
[2024-04-12] MEDS: SODIUM CHLORIDE 0.9% 1,000 ML IV ONE ×2 (19:55)
[2024-04-12] MEDS ORDERED: NALOXONE 0.4 MG/ML 1 ML VIAL IV PRN (21:10)
--- NOTE | 2024-04-12 21:10 | ED ---
Abdominal Pain HPI - General Chief Complaint: Abdominal Pain Stated Complaint: abd pain Time Seen by Provider: 04/12/24 18:45 Source: patient Mode of arrival: ambulatory Limitations: no limitations - History of Present Illness Initial Comments: 63-year-old male presents emergency department reporting abdominal pain. Patient recently discharged for same. He does have a history of chronic pancreatitis. States he has been taking his oxycodone and friend at home however cannot hold down these medications. He did have a stent placed at [facility] 2 months ago which was removed 3 weeks ago. He was hospitalized at our facility after that. Reports that since he has been discharged his symptoms never improved. He has lost 8 pounds. He denies fevers. No hematemesis. Does admit to dark green emesis. No black or bloody stools. No other alleviating, precipitating or modifying factors - Related Data Allergies Allergy/AdvReac Type Severity Reaction Status Date / Time No Known Allergies Allergy Verified 04/12/24 19:57 Review of Systems ROS Statement: Those systems with pertinent positive or pertinent negative responses have been documented in the HPI. ROS Other: All systems not noted in ROS Statement are negative. Past Medical History Past Medical History: No Reported History Additional Past Medical History / Comment(s): pancreatitis. cyst on pancreas History of Any Multi-Drug Resistant Organisms: None Reported Past Surgical History: No Surgical Hx Reported Additional Past Surgical History / Comment(s): abd surgery stent placed in January 2024 removed 03/2024 Past Psychological History: No Psychological Hx Reported Smoking Status: Current every day smoker Past Alcohol Use History: Occasional Past Drug Use History: Marijuana General Exam Limitations: no limitations General appearance: alert, in no apparent distress Head exam: Present: atraumatic, normocephalic, normal inspection Eye exam: Present: normal appearance, PERRL, EOMI. Absent: scleral icterus, conjunctival injection, periorbital swelling ENT exam: Present: normal exam, mucous membranes moist Neck exam: Present: normal inspection. Absent: tenderness, meningismus, lymphadenopathy Respiratory exam: Present: normal lung sounds bilaterally. Absent: respiratory distress, wheezes, rales, rhonchi, stridor Cardiovascular Exam: Present: regular rate, normal rhythm, normal heart sounds. Absent: systolic murmur, diastolic murmur, rubs, gallop, clicks GI/Abdominal exam: Present: soft, tenderness (Epigastric), normal bowel sounds. Absent: distended, guarding, rebound, rigid Extremities exam: Present: normal inspection, full ROM, normal capillary refill. Absent: tenderness, pedal edema, joint swelling, calf tenderness Back exam: Present: normal inspection Neurological exam: Present: alert, oriented X3, CN II-XII intact Psychiatric exam: Present: normal affect, normal mood Skin exam: Present: warm, dry, intact, normal color. Absent: rash Course Vital Signs 04/12/24 04/12/24 04/13/24 18:40 20:00 01:56 Temperature 97.4 F L 97.3 F L Pulse Rate 55 L 64 59 L Respiratory 20 16 18 Rate Blood Pressure 87/66 104/62 120/78 O2 Sat by Pulse 95 98 100 Oximetry 04/13/24 04/13/24 04/13/24 08:14 12:28 14:21 Temperature Pulse Rate 77 74 80 Respiratory 20 18 18 Rate Blood Pressure 123/84 120/68 111/85 O2 Sat by Pulse 97 96 97 Oximetry Medical Decision Making - Medical Decision Making Was pt. sent in by a medical professional or institution (, PA, PROPOSAL MANAGER, urgent care, hospital, or retirement...) When possible be specific @ -No Did you speak to anyone other than the patient for history (EMS, parent, family, police, friend...)? What history was obtained from this source @ -No Did you review nursing and triage notes (agree or disagree)? Why? @ -I reviewed patient's recent discharge summary Were old charts reviewed (outside hosp., previous admission, EMS record, old EKG, old radiological studies, urgent care reports/EKG's, retirement records)? Report findings @ -I reviewed the patient's recent discharge summary Differential Diagnosis (chest pain, altered mental status, abdominal pain women, abdominal pain men, vaginal bleeding, weakness, fever, dyspnea, syncope, headache, dizziness, GI bleed, back pain, seizure, CVA, palpatations, mental health, musculoskeletal)? @ -Differential Abdominal Pain Men: Appendicitis, cholecystitis, diverticulosis, ischemic bowel, pancreatitis, hepatitis, UTI, gastroenteritis, AAA, incarcerated hernia, bowel obstruction, constipation, inflammatory bowel, hepatitis, peptic ulcer disease, splenic infarction, perforated viscus, testicular torsion, this is not meant to be an all-inclusive list EKG interpreted by me (3pts min.). @ -Yes and demonstrates normal sinus rhythm with a rate of 87. QRS 105. QTc of 416. X-rays interpreted by me (1pt min.). @ -None done CT interpreted by me (1pt min.). @ -None done U/S interpreted by me (1pt. min.). @ -None done What testing was considered but not performed or refused? (CT, X-rays, U/S, labs)? Why? @ -None What meds were considered but not given or refused? Why? @ -None Did you discuss the management of the patient with other professionals (karma mathis i.e. , PA, PROPOSAL MANAGER, lab, RT, psych nurse, clinical social worker, cardiology nurse practitioner, teacher, banking officer, director of casework services)? Give summary @ -Spoke with Dr. Jacobs who was agreeable to admitting the patient to our hospital Was smoking cessation discussed for >3mins.? @ -No Was critical care preformed (if so, how long)? @ -No Were there social determinants of health that impacted care today? How? (Homelessness, low income, unemployed, alcoholism, drug addiction, transportation, low edu. Level, literacy, decrease access to med. care, half-way, rehab)? @ -No Was there de-escalation of care discussed even if they declined (Discuss DNR or withdrawal of care, Hospice)? DNR status @ -No What co-morbidities impacted this encounter? (DM, HTN, Smoking, COPD, CAD, Cancer, CVA, ARF, Chemo, Hep., AIDS, mental health diagnosis, sleep apnea, morbid obesity)? @ -Chronic pancreatitis, pseudocyst Was patient admitted / discharged? Hospital course, mention meds given and route, prescriptions, significant lab abnormalities, going to OR and other pertinent info. @ -Upon arrival patient seen and evaluated in room 12. Thorough history and physical exam was performed. IV was established. Lab was conducted. Patient was given nausea and pain medications. I did discuss the results with Dr. Jacobs. He was agreeable to keeping the patient hospitalized at our facility for symptom control. Patient will eventually need to follow-up with GI at [facility]. Patient was agreeable to admission at our facility with the circumstances that he knows we do not have GI coverage. Undiagnosed new problem with uncertain prognosis? @ -No Drug Therapy requiring intensive monitoring for toxicity (Heparin, Nitro, Insulin, Cardizem)? @ -No Were any procedures done? @ -No Diagnosis/symptom? @ -Acute exacerbation of chronic epigastric abdominal pain, chronic pancreatitis Acute, or Chronic, or Acute on Chronic? @ -Acute on chronic Uncomplicated (without systemic symptoms) or Complicated (systemic symptoms)? @ -Complicated Side effects of treatment? @ -No Exacerbation, Progression, or Severe Exacerbation? @ -Yes Poses a threat to life or bodily function? How? (Chest pain, USA, CO, pneumonia, PE, COPD, DKA, ARF, appy, cholecystitis, CVA, Diverticulitis, Homicidal, Suicidal, threat to staff... and all critical care pts) @ -No - Lab Data Result diagrams: 04/13/24 06:23 04/13/24 06:23 Lab Results 04/12/24 04/12/24 04/12/24 Range/Units 19:17 19:17 19:17 WBC 14.2 H (3.8-10.6) k/uL RBC 4.05 L (4.30-5.90) m/uL Hgb 11.9 L (13.0-17.5) gm/dL Hct 37.4 L (39.0-53.0) % MCV 92.3 (80.0-100.0) fL MCH 29.4 (25.0-35.0) pg MCHC 31.9 (31.0-37.0) g/dL RDW 16.6 H (11.5-15.5) % Plt Count 461 H (150-450) k/uL MPV 7.6 Neutrophils % 82 % Lymphocytes % 11 % Monocytes % 4 % Eosinophils % 1 % Basophils % 0 % Neutrophils # 11.7 H (1.3-7.7) k/uL Lymphocytes # 1.5 (1.0-4.8) k/uL Monocytes # 0.6 (0-1.0) k/uL Eosinophils # 0.2 (0-0.7) k/uL Basophils # 0.0 (0-0.2) k/uL Hypochromasia Slight Anisocytosis Slight PT 11.1 (10.0-12.5) sec INR 1.0 (<1.2) APTT 30.2 H (22.0-30.0) sec Sodium 135 L (137-145) mmol/L Potassium 4.1 (3.5-5.1) mmol/L Chloride 94 L (98-107) mmol/L Carbon Dioxide 26 (22-30) mmol/L Anion Gap 15 mmol/L BUN 20 (9-20) mg/dL Creatinine 0.65 L (0.66-1.25) mg/dL Est GFR (CKD-EPI)AfAm >90 (>60 ml/min/1.73 sqM) Est GFR (CKD-EPI)NonAf >90 (>60 ml/min/1.73 sqM) Glucose 86 (74-99) mg/dL Plasma Lactic Acid Asif (0.7-2.0) mmol/L Calcium 9.8 (8.4-10.2) mg/dL Total Bilirubin 1.0 (0.2-1.3) mg/dL AST 18 (17-59) U/L ALT 7 (4-49) U/L Alkaline Phosphatase 76 (38-126) U/L Troponin I (0.000-0.034) ng/mL Total Protein 7.3 (6.3-8.2) g/dL Albumin 3.9 (3.5-5.0) g/dL Amylase 48 (30-110) U/L Lipase 71 (23-300) U/L 04/12/24 04/12/24 Range/Units 19:17 19:17 WBC (3.8-10.6) k/uL RBC (4.30-5.90) m/uL Hgb (13.0-17.5) gm/dL Hct (39.0-53.0) % MCV (80.0-100.0) fL MCH (25.0-35.0) pg MCHC (31.0-37.0) g/dL RDW (11.5-15.5) % Plt Count (150-450) k/uL MPV Neutrophils % % Lymphocytes % % Monocytes % % Eosinophils % % Basophils % % Neutrophils # (1.3-7.7) k/uL Lymphocytes # (1.0-4.8) k/uL Monocytes # (0-1.0) k/uL Eosinophils # (0-0.7) k/uL Basophils # (0-0.2) k/uL Hypochromasia Anisocytosis PT (10.0-12.5) sec INR (<1.2) APTT (22.0-30.0) sec Sodium (137-145) mmol/L Potassium (3.5-5.1) mmol/L Chloride (98-107) mmol/L Carbon Dioxide (22-30) mmol/L Anion Gap mmol/L BUN (9-20) mg/dL Creatinine (0.66-1.25) mg/dL Est GFR (CKD-EPI)AfAm (>60 ml/min/1.73 sqM) Est GFR (CKD-EPI)NonAf (>60 ml/min/1.73 sqM) Glucose (74-99) mg/dL Plasma Lactic Acid Asif 1.2 (0.7-2.0) mmol/L Calcium (8.4-10.2) mg/dL Total Bilirubin (0.2-1.3) mg/dL AST (17-59) U/L ALT (4-49) U/L Alkaline Phosphatase (38-126) U/L Troponin I <0.012 (0.000-0.034) ng/mL Total Protein (6.3-8.2) g/dL Albumin (3.5-5.0) g/dL Amylase (30-110) U/L Lipase (23-300) U/L Disposition Clinical Impression: Acute on chronic pancreatitis, Abdominal pain, Vomiting Disposition: ADMITTED IP TO THIS [facility] Condition: Stable Is patient prescribed a controlled substance at d/c from ED?: No Time of Disposition: 21:04 Decision to Admit Reason: Admit from EC Decision Date: 04/12/24 Decision Time: 21:04
[2024-04-12] MEDS: HYDROmorphone 1 MG/ML 1 ML SYRINGE IVP PRN (22:43)
[2024-04-12] MEDS: SODIUM CHLORIDE 0.9% 1,000 ML IV SCH (22:51)
[2024-04-13] MEDS: ONDANSETRON 4 MG/2 ML VIAL IVP PRN (01:53)
[2024-04-13 06:53] LABS: Anisocytosis Slight; Basophils % (A) 0 %; Eosinophils # (A) 0.1 k/uL (0-0.7); Eosinophils % (A) 1 %; HCT 31.9 % (39.0-53.0); HGB 10.2 gm/dL (13.0-17.5); Hypochromasia Marked; Lymphocytes # (A) 1.3 k/uL (1.0-4.8); Lymphocytes % (A) 14 %; MCHC 32.1 g/dL (31.0-37.0); MCV 93.4 fL (80.0-100.0); Mean Platelet Volume 7.6; Monocytes # (A) 0.6 k/uL (0-1.0); Monocytes % (A) 7 %; Neutrophils # (A) 6.7 k/uL (1.3-7.7); Neutrophils % (A) 77 %; Platelet Count 379 k/uL (150-450); RBC 3.42 m/uL (4.30-5.90); RDW 16.5 % (11.5-15.5); WBC 8.8 k/uL (3.8-10.6)
[2024-04-13 07:07] LABS: African American GFR (CKD) >90 (>60 ml/min/1.73 sqM); Anion Gap 9 mmol/L; Blood Urea Nitrogen 19 mg/dL (9-20); Calcium 9.3 mg/dL (8.4-10.2); Carbon Dioxide 28 mmol/L (22-30); Chloride 98 mmol/L (98-107); Glucose 78 mg/dL (74-99); Lipase 102 U/L (23-300); Non-African American GFR(CKD) >90 (>60 ml/min/1.73 sqM); Potassium 3.5 mmol/L (3.5-5.1); Sodium 135 mmol/L (137-145)
[2024-04-13] MEDS: PANTOPRAZOLE 40 MG/10 ML VIAL IV SCH (08:11)
[2024-04-14 11:00] VITALS: BMI 17.2
[2024-04-14] MEDS ORDERED: PROCHLORPERAZINE INJ 10 MG/2 ML VIAL IVP PRN (16:32)
[2024-04-14] MEDS: METOCLOPRAMIDE 5 MG/ML 2 ML VIAL IVP SCH (17:59)
[2024-04-14 19:14] VITALS: RESP 18
--- NOTE | 2024-04-14 21:19 | CT ---
EXAMINATION TYPE: CT abdomen pelvis w con CT DLP: 712 mGycm, Automated exposure control for dose reduction was used. DATE OF EXAM: 04/14/2024 8:23 PM COMPARISON: CT abdomen pelvis most recent from 03/30/2024 CLINICAL INDICATION: Male, 63 years old with history of abdominal pain; pancreatitis TECHNIQUE: Axial CT abdomen pelvis w con;Sagittal and coronal reformats were created on a separate w orkstation. Contrast used:100 mL of Isovue 300 with IV Contrast, (none if empty) Oral contrast used: without Oral Contrast (none if empty) FINDINGS: LOWER CHEST: Posterior dependent subsegmental atelectasis is noted. ABDOMEN LIVER: There are at least 3 new hypodense lesions within the liver. Largest is within the left hepati c lobe measuring 1.5 cm. Additional lesion along the inferior margin of the right hepatic lobe measur ing 8 mm , Additional lesion within the right hepatic dome measuring 1 cm. These are all similar to p rior. GALLBLADDER AND BILE DUCTS: Unremarkable. PANCREAS: Redemonstration of edematous appearance and increase surrounding fluid around the pancreas with tail and pigtail catheter extending into the gastric lumen. No pancreatic ductal dilatation. No pancreatic calcifications demonstrated. SPLEEN: Normal size with fluid extending into the hilum ADRENAL GLANDS: Unremarkable. KIDNEYS AND URETERS: No evidence of hydronephrosis or renal calculus. The kidneys enhance symmetrical ly. Contrast is demonstrated within both collecting systems on the delayed phase. PELVIS BLADDER: Incompletely distended but grossly unremarkable. REPRODUCTIVE: Coarse calcifications of the prostate gland are identified. ABDOMEN & PELVIS STOMACH AND BOWEL: Increasing duodenal dilatation measuring up to 5.7 cm, previously 4.5 cm. Stomach is distended with ingested contents. Transition point identified involving the distal portion of the duodenum adjacent to pancreatic infl ammatory changes involving the fourth portion of the duodenum . Distal colonic diverticulosis without evidence for acute diverticulitis. Heterogenous area of prior pseudocyst with drain extending to the stomach. Possible ill-defined fluid collection versus ligament change in this area. Wall thickening of the lesser curvature of the stomach. PERITONEUM: No evidence of pneumoperitoneum. VASCULATURE: Similar atherosclerotic calcifications are present throughout the abdominal aorta and it s branches. No evidence of aortic aneurysm. Portal venous system appears patent however there remains significant narrowing of the portal venous confluence due to surrounding fluid and inflammatory villegas ges. Redemonstration of for visualization of the splenic vein with surrounding collateral vessels in the s plenic region. MUSCULOSKELETAL: No acute osseous abnormalities. Osteoarthritic changes of both hips. Degenerative ch anges of the spine. Most pronounced at L5-S1. Multilevel facet arthropathy lower lumbar spine. LYMPH NODES: No gross evidence for lymphadenopathy. SOFT TISSUE/ABDOMINAL WALL: Tiny fat filled umbilical hernia. IMPRESSION: 1. Grossly similar Acute on chronic pancreatitis with increased peripancreatic ill-defined fluid/inf lammation around the pancreatic body and tail. Drainage tube remains in place.r 2. Proximal duodenal dilatation with focal transition point involving the distal duodenum suggesting possible stricture from pancreatic inflammation. Findings slightly worse from prior with distention o f the stomach. Consider nasogastric tube decompression.. 3. Stable hypodense lesions in the liver. 4. Focal narrowing of the portal venous confluence due to surrounding inflammatory changes/fluid. 5. 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 [facility], , 04/14/2024 9:17 PM
--- NOTE | 2024-04-14 21:36 | P.GSCN ---
History of Present Illness Consult date: 04/14/24 History of present illness: 63-year-old male presents emergency department reporting abdominal pain. Patient recently discharged for same. He does have a history of chronic pancreatitis. States he has been taking his oxycodone and friend at home however cannot hold down these medications. He did have a stent placed at [facility] 2 months ago which was removed 3 weeks ago. (stent still in place as seen on CT) He was hospitalized at our facility after that. Reports that since he has been discharged his symptoms never improved. He has lost 8 pounds. He denies fevers. No hematemesis. Does admit to dark green emesis. No black or bloody stools. No other alleviating, precipitating or modifying factors Past Medical History Past Medical History: No Reported History Additional Past Medical History / Comment(s): pancreatitis. cyst on pancreas History of Any Multi-Drug Resistant Organisms: None Reported Past Surgical History: No Surgical Hx Reported Additional Past Surgical History / Comment(s): abd surgery stent placed in January 2024 removed 03/2024 Past Psychological History: No Psychological Hx Reported Smoking Status: Current every day smoker Past Alcohol Use History: Occasional Past Drug Use History: Marijuana Medications and Allergies Home Medications Medication Instructions Recorded Confirmed Type oxyCODONE-APAP 10-325MG [Percocet 1 tab PO Q4H PRN 03/30/24 04/12/24 History 10-325 mg] Ondansetron [Zofran] 4 mg PO Q6H PRN 04/12/24 04/12/24 History Allergies Allergy/AdvReac Type Severity Reaction Status Date / Time No Known Allergies Allergy Verified 04/12/24 19:57 Surgical - Exam Osteopathic Statement: *. No significant issues noted on an osteopathic stru ctural exam other than those noted in the History and Physical/Consult. Vital Signs Temp Pulse Resp BP Pulse Ox 97.4 F L 55 L 20 87/66 95 04/12/24 18:40 04/12/24 18:40 04/12/24 18:40 04/12/24 18:40 04/12/24 18:40 gen: nad cv: rrr pul: non labored breathing abd: soft,non distended, tender to palpationin epigastric region, no guarding or rebound tenderness, not peritoneal, not surgical abdomen Results - Labs 04/13/24 06:23 04/13/24 06:23 Assessment and Plan Assessment: 63 yo male w/ recurrent pancreatitis and associated pseduocyst -patient has stent going from posterior stomach to pseudocyst -patient made had sentinel loop(bowel obstruction) around first portion of the duodenum 2/2 pancreatitis (evidence by large stomach) patient will require ng tube placement for decompression of stomach recommend transfer to [facility] for possible decompensation Time with Patient: Greater than 30
[2024-04-15] MEDS: ONDANSETRON 4 MG/2 ML VIAL IVP PRN (09:32)
--- NOTE | 2024-04-15 13:55 | P.PN ---
Subjective Progress Note Date: 04/15/24 CHIEF COMPLAINT: Pancreatitis HISTORY OF PRESENT ILLNESS: Patient continues report epigastric abdominal pain. He is in the process of being transferred to [facility]. Patient has had prior procedures done at [facility]. His nausea and vomiting are better controlled today with medications. They did try to place NG tube yesterday but were unsuccessful. he did have a small bowel movement. Afebrile. WBC 14.2 down to 8.8 PHYSICAL EXAM: VITAL SIGNS: Reviewed. GENERAL: no acute distress. ABDOMEN: Soft. Nondistended. Epigastric tenderness NEUROLOGIC: Alert and oriented. Cranial nerves II through XII grossly intact. ASSESSMENT: 1. Recurrent pancreatitis and associated pseudocyst 2. patient has stent going from posterior stomach to pseudocyst 3. patient had sentinel loop(bowel obstruction) around first portion of the duodenum 2/2 pancreatitis (evidence by large stomach) PLAN: -Recommend transfer to [facility]. Transfer is in progress. product marketing programs manager working on prior authorization -Continue supportive care -Surgical service will sign off. Please call with any questions or concerns Physician [place] note has been reviewed by physician. Signing provider agrees with the documented findings, assessment, and plan of care. Objective - Vital Signs Vital signs: Vital Signs Temp 98.3 F 04/15/24 07:00 Pulse 76 04/15/24 07:00 Resp 18 04/15/24 08:00 BP 128/79 04/15/24 07:00 Pulse Ox 100 04/15/24 07:00 FiO2 Intake & Output 04/14/24 04/15/24 04/15/24 18:59 06:59 18:59 Weight 54.431 kg Other: Voiding Method Toilet Toilet Toilet # Voids 4 3 - Labs CBC & Chem 7: 04/13/24 06:23 04/13/24 06:23
[2024-04-15 19:23] VITALS: BP 128/82; PULSE 69; TEMP 98.3
[2024-04-15] MEDS ORDERED: DEXTROSE 50% SYRINGE 50 ML IVP PRN (19:59)
--- NOTE | 2024-04-15 20:03 | HP ---
HISTORY AND PHYSICAL CHIEF COMPLAINT: Epigastric pain and vomiting. HISTORY OF PRESENT ILLNESS: This is another admission for this 63-year-old gentleman who is a [facility] patient, who has a pseudocyst. He was in the office recently stating that [facility] had removed the shunt between the cyst and his GI tract. He presented with chronic epigastric pain with nausea and vomiting. He had no fever, chills, hematemesis, melena, hematochezia, jaundice, etc. Lipase and amylase were normal. The pain grew worse. He came to the emergency room. REVIEW OF SYSTEMS: Said symptoms have not changed. Past medical history, family history and personal and social histories are otherwise unremarkable or noncontributory. PHYSICAL EXAMINATION: VITAL SIGNS: Normal. HEAD, EARS, EYES, NOSE, MOUTH, AND THROAT: Normal. CHEST: Clear. CARDIAC: Normal. ABDOMEN: Flat and he is tender over the epigastrium and no masses. Flank nontender. Bowel sounds present. EXTREMITIES: Normal except for poor muscle bulk. NEUROLOGIC: He is intact. IMPRESSION: He is admitted to the hospital with diagnosis, 1. Intractable abdominal pain and vomiting. 2. History of alcoholic pancreatitis. 3. Pancreatic pseudocyst. 4. Dehydration. 5. Malnutrition. PLAN: 1. Bedrest. 2. IV fluids. 3. Analgesics and antiemetics. MMODL / CHAITANYAN: [id number] /
--- NOTE | 2024-04-15 20:06 | PN ---
PROGRESS NOTE CHIEF COMPLAINT: Persistent nausea and vomiting and epigastric pain. HISTORY OF PRESENT ILLNESS: This gentleman's condition remains about the same. Gastroenterology was consulted, but they are not available this week. He was seen by Surgery, who recommends that he should be transferred back to [facility] and these arrangements will be made. PHYSICAL EXAMINATION: VITAL SIGNS: Normal. He is afebrile. CHEST: Clear. CARDIAC: Normal. ABDOMEN: Flat, remains tender. Bowel sounds are present. IMPRESSION: 1. Intractable nausea and vomiting. 2. Intractable epigastric pain. 3. Chronic pancreatitis. 4. Alcoholism. 5. Pseudocyst. PLAN: Contact [facility] transfer team. The case was discussed with their attending physician and they agreed to take the case indicating that maybe a day or two before the beds will be available. MMANANYAL / CHAITANYAN: [id number] /
--- NOTE | 2024-04-15 20:06 | PN ---
PROGRESS NOTE CHIEF COMPLAINT: Intractable nausea and vomiting. HISTORY OF PRESENT ILLNESS: This gentleman is still having pain and still vomiting. He has had no hematemesis. PHYSICAL EXAMINATION: VITAL SIGNS: Normal. CHEST: Clear. ABDOMEN: Flat and soft and he is still complaining of a lot of epigastric and upper abdominal pain. There are no masses. Bowel sounds are present. EXTREMITIES: Normal. IMPRESSION: 1. Epigastric pain and intractable nausea and vomiting. 2. Pancreatic pseudocyst. 3. Chronic obstructive pulmonary disease. 4. Alcoholism. PLAN: Continue with current management. He was told that it may be necessary to transfer him back to [facility]. He states that he and his have been trying to contact his surgeon there (Dr. Sweet) without success. MMODL / IJN: [id number] /
--- NOTE | 2024-04-15 20:06 | PN ---
PROGRESS NOTE CHIEF COMPLAINT: Epigastric pain, vomiting. HISTORY OF PRESENT ILLNESS: This gentleman has been doing no better. He is still complaining of epigastric pain and vomiting several times a day. PHYSICAL EXAMINATION: VITAL SIGNS: He is afebrile. HEAD, EARS, EYES, NOSE, MOUTH, AND THROAT: Normal. CARDIAC: Normal. CHEST: Clear. ABDOMEN: Flat, soft, and bowel sounds are heard. IMPRESSION: 1. Intractable nausea and vomiting. 2. History of alcoholic pancreatitis. 3. History of pancreatic pseudocyst. PLAN: Blood work is being repeated. His white count has gone down from 14,200 to 8800. He has not heard anything back from [facility]. MMODL / IJN: [id number] /
[2024-04-15] MEDS: DEXTROSE 50% SYRINGE 50 ML IVP PRN (20:10)
--- NOTE | 2024-04-15 20:18 | DS ---
DISCHARGE SUMMARY CHIEF COMPLAINT: Abdominal pain and vomiting. HISTORY OF PRESENT ILLNESS AND PHYSICAL EXAMINATION: Details of this man's history and physical can be found in the initial workup. LABORATORY STUDIES: While he was in the hospital, he had laboratory studies, details of which can be found in the laboratory section of his chart. COURSE IN THE HOSPITAL: After admission he was placed on bedrest, started intravenous fluids, analgesics, antiemetics, and IV fluids. He persisted having epigastric pain and vomiting. While he was in the hospital, he and his were told that it may be necessary to transfer him back to [facility] and during his few days in the hospital, they made efforts to contact his physician regarding transfer, who was Michael Sweet MD, at [phone]. It was requested that he be seen by Gastroenterology and they were not available this week. He was seen by Surgery in lieu of Gastroenterology, who suggested that the patient should go back to [facility]. Contact was initiated and the patient was accepted. FINAL DIAGNOSES: 1. Intractable abdominal pain. 2. Intractable nausea, vomiting. 3. Dehydration. 4. Malnutrition. 5. COPD. 6. Chronic alcoholism. 7. Chronic alcoholic pancreatitis. 8. Pancreatic pseudocyst. OPERATIONS: None. CONSULTATIONS: General Surgery. MMODL / IJN: [id number] /
[2024-04-16 11:58] LABS: Glucose,Whole Blood 85 mg/dL (70-110)
[2024-04-16 11:58] LABS: Glucose,Whole Blood 63 mg/dL (70-110)
== END 2024-04-15 23:35 | disposition short-term general hospital (02) ==
LOC: EC 18:00 → 6NMEDSUR 21:11 → OBSVTOIN 21:12 → INTOOBSV 21:12 → 6NMEDSUR 04-13 01:27 → UNDODISIN 04-15 23:35
PROVIDERS: ADMIT Family Medicine; ATTEND Family Medicine
DX: K85.20 Alcohol induced acute pancreatitis without necrosis or infection (principal); K86.0 Alcohol-induced chronic pancreatitis; K86.3 Pseudocyst of pancreas; E46 Unspecified protein-calorie malnutrition; E86.0 Dehydration; K56.609 Unspecified intestinal obstruction, unspecified as to partial versus complete obstruction; G89.29 Other chronic pain; J44.9 Chronic obstructive pulmonary disease, unspecified; Z68.1 Body mass index [BMI] 19.9 or less, adult; F17.200 Nicotine dependence, unspecified, uncomplicated; F10.20 Alcohol dependence, uncomplicated
CPT/HCPCS: 96376 ×5; 96361 ×5; 96375 ×4; 96374; 99285; 36415; 93005; 80053; 80048; 82150; 83605; 83690 ×2; 84484; 85025 ×2; 85610; 85730; 74018; 74177; G0378 ×4; J2765 ×2; J2405 ×4; J1170; J1171 ×3; Q9967; J2470 ×3

== ENCOUNTER 2024-06-01 09:02 | Emergency (ER) | payer OTHER ==
[2024-06-01 09:09] VITALS: TEMP 98.6
--- NOTE | 2024-06-01 09:22 | ED ---
General Adult HPI - General Chief complaint: Abdominal Pain Stated complaint: ABD pain Time Seen by Provider: 06/01/24 09:04 Source: patient, RN notes reviewed, old records reviewed Mode of arrival: EMS Limitations: no limitations - History of Present Illness Initial comments: Patient is a 63-year-old male present to the emergency department with concerns with abdominal discomfort. Onset of symptoms was about 12 hours ago. Patient has had nausea and vomiting for a couple of days, green emesis. Patient did have a small bowel movement this morning. Discomfort is severe. Patient has recent diagnosis of pancreatic and liver cancer. Patient did have bowel obstruction with surgical resection around a month ago. No fever. - Related Data Allergies Allergy/AdvReac Type Severity Reaction Status Date / Time No Known Allergies Allergy Verified 06/01/24 09:09 Review of Systems ROS Statement: Those systems with pertinent positive or pertinent negative responses have been documented in the HPI. ROS Other: All systems not noted in ROS Statement are negative. Constitutional: Denies: fever Eyes: Denies: eye pain ENT: Denies: throat pain Respiratory: Denies: cough Cardiovascular: Denies: chest pain Endocrine: Denies: fatigue Gastrointestinal: Reports: as per HPI, abdominal pain, nausea, vomiting Musculoskeletal: Denies: back pain Past Medical History Past Medical History: Cancer Additional Past Medical History / Comment(s): pancreatitis. cyst on pancreas History of Any Multi-Drug Resistant Organisms: None Reported Past Surgical History: No Surgical Hx Reported, Bowel Resection Additional Past Surgical History / Comment(s): abd surgery stent placed in January 2024 removed 03/2024. gastric tube Past Psychological History: No Psychological Hx Reported Smoking Status: Current every day smoker Past Alcohol Use History: Occasional Past Drug Use History: Marijuana General Exam Limitations: no limitations General appearance: alert Head exam: Present: normocephalic Eye exam: Present: normal appearance Neck exam: Present: normal inspection Respiratory exam: Present: normal lung sounds bilaterally Cardiovascular Exam: Present: tachycardia GI/Abdominal exam: Present: soft, tenderness (Tenderness to light touch), guarding, rigid, hernia (Small umbilical hernia that is soft yet lime mixer tender) Extremities exam: Present: normal inspection Neurological exam: Present: alert Psychiatric exam: Present: normal affect, normal mood Skin exam: Present: normal color Course Vital Signs 06/01/24 06/01/24 06/01/24 09:05 09:09 09:15 Temperature 98.6 F Pulse Rate 105 H 105 H 105 H Respiratory 24 24 24 Rate Blood Pressure 135/109 139/105 130/110 O2 Sat by Pulse 98 99 98 Oximetry 06/01/24 10:05 Temperature Pulse Rate 104 H Respiratory 22 Rate Blood Pressure 137/96 O2 Sat by Pulse 98 Oximetry EKG Findings - EKG Results: EKG: interpreted by ERMD, sinus rhythm, normal axis, normal QRS, normal ST/T Medical Decision Making - Medical Decision Making Was pt. sent in by a medical professional or institution (, PA, TIRE INSTALLER, urgent care, hospital, or correction...) When possible be specific @ -[No] Did you speak to anyone other than the patient for history (EMS, parent, family, police, friend...)? What history was obtained from this source @ -[No] Did you review nursing and triage notes (agree or disagree)? Why? @ -[I reviewed and agree with nursing and triage notes] Were old charts reviewed (outside hosp., previous admission, EMS record, old EKG, old radiological studies, urgent care reports/EKG's, correction records)? Report findings @ -Previous admission and notes reviewed including surgical consultation Differential Diagnosis (chest pain, altered mental status, abdominal pain women, abdominal pain men, vaginal bleeding, weakness, fever, dyspnea, syncope, headache, dizziness, GI bleed, back pain, seizure, CVA, palpatations, mental health, musculoskeletal)? @ -Differential Abdominal Pain Men: Appendicitis, cholecystitis, diverticulosis, ischemic bowel, pancreatitis, hepatitis, UTI, gastroenteritis, AAA, incarcerated hernia, bowel obstruction, constipation, inflammatory bowel, hepatitis, peptic ulcer disease, splenic infarction, perforated viscus, testicular torsion, this is not meant to be an all-inclusive list EKG interpreted by me (3pts min.). @ -[As above] X-rays interpreted by me (1pt min.). @ -X-ray shows some possible free air left upper abdomen CT interpreted by me (1pt min.). @ -Scan as discussed with radiologist has concern for perforation left upper quadrant near the spleen, possibly the stomach with increased fluid and possible splenic infarct. U/S interpreted by me (1pt. min.). @ -[None done] What testing was considered but not performed or refused? (CT, X-rays, U/S, labs)? Why? @ -[None] What meds were considered but not given or refused? Why? @ -[None] Did you discuss the management of the patient with other professionals (professionals i.e. , PA, TIRE INSTALLER, lab, RT, psych nurse, psychotherapist social worker, manager android, teacher, medical laboratory technical officer, immigration case manager)? Give summary @ -Report discussed with radiologist. Also discussed with Dr. Oden, surgeon who did come evaluate patient. He does recommend transfer to [facility] where patient did have his previous surgery. Was smoking cessation discussed for >3mins.? @ -[No] Was critical care preformed (if so, how long)? @ -32 minutes critical care time Were there social determinants of health that impacted care today? How? (Homelessness, low income, unemployed, alcoholism, drug addiction, transportation, low edu. Level, literacy, decrease access to med. care, assisted, rehab)? @ -[No] Was there de-escalation of care discussed even if they declined (Discuss DNR or withdrawal of care, Hospice)? DNR status @ -[No] What co-morbidities impacted this encounter? (DM, HTN, Smoking, COPD, CAD, Cancer, CVA, ARF, Chemo, Hep., AIDS, mental health diagnosis, sleep apnea, morbid obesity)? @ -Recent diagnosis of pancreatic and liver CA Was patient admitted / discharged? Hospital course, mention meds given and route, prescriptions, significant lab abnormalities, going to OR and other pertinent info. @ -Patient presents with abdominal discomfort and surgical abdomen. Surgery consulted shortly after arrival. CT scan concerning for perforation and possible splenic infarct. Patient to be transferred for advanced surgical care Case also discussed with [facility] transfer line, Dr. Maher to accept patient to category 2 in the emergency department. Undiagnosed new problem with uncertain prognosis? @ -[No] Drug Therapy requiring intensive monitoring for toxicity (Heparin, Nitro, Insulin, Cardizem)? @ -[No] Were any procedures done? @ -[No] Diagnosis/symptom? @ -Bowel perforation, splenic infarct Acute, or Chronic, or Acute on Chronic? @ -, Acute, acute Uncomplicated (without systemic symptoms) or Complicated (systemic symptoms)? @ -[default] Side effects of treatment? @ -[No] Exacerbation, Progression, or Severe Exacerbation? @ -[No] Poses a threat to life or bodily function? How? (Chest pain, [place], NE, pneumonia, PE, COPD, DKA, ARF, appy, cholecystitis, CVA, Diverticulitis, Homicidal, Suicidal, threat to staff... and all critical care pts) @ -Threat to sepsis. Threat to bowel function. Threat to splenic h - Lab Data Result diagrams: 06/01/24 09:18 06/01/24 09:18 Lab Results 06/01/24 06/01/24 06/01/24 Range/Units 09:18 09:18 09:18 WBC 3.3 L (3.8-10.6) k/uL RBC 4.32 (4.30-5.90) m/uL Hgb 11.6 L (13.0-17.5) gm/dL Hct 37.5 L (39.0-53.0) % MCV 86.7 D (80.0-100.0) fL MCH 26.8 (25.0-35.0) pg MCHC 30.9 L (31.0-37.0) g/dL RDW 16.8 H (11.5-15.5) % Plt Count 271 (150-450) k/uL MPV 9.4 Hypochromasia Moderate Anisocytosis Slight PT 14.3 H (10.0-12.5) sec INR 1.4 H (<1.2) APTT 25.8 (22.0-30.0) sec Sodium 135 L (137-145) mmol/L Potassium 4.0 (3.5-5.1) mmol/L Chloride 97 L (98-107) mmol/L Carbon Dioxide 25 (22-30) mmol/L Anion Gap 13 mmol/L BUN 14 (9-20) mg/dL Creatinine 0.50 L (0.66-1.25) mg/dL Est GFR (CKD-EPI)AfAm >90 (>60 ml/min/1.73 sqM) Est GFR (CKD-EPI)NonAf >90 (>60 ml/min/1.73 sqM) Glucose 138 H (74-99) mg/dL Calcium 8.7 (8.4-10.2) mg/dL Total Bilirubin 1.4 H (0.2-1.3) mg/dL AST 26 (17-59) U/L ALT 19 (4-49) U/L Alkaline Phosphatase 125 (38-126) U/L Total Protein 6.9 (6.3-8.2) g/dL Albumin 3.5 (3.5-5.0) g/dL Amylase 31 (30-110) U/L Lipase 26 (23-300) U/L Critical Care Time Critical Care Time: Yes Disposition Clinical Impression: Bowel perforation, Splenic infarct Disposition: OTHER INSTITUTION NOT DEFINED Condition: Serious Is patient prescribed a controlled substance at d/c from ED?: No Referrals: Tres Jacobs MD [Primary Care Provider] - 1-2 days Time of Disposition: 10:35 - Out of Hospital Transfer - Req. Specs Out of Hospital Transfer - Requested Specifics: Other Emergency Center
[2024-06-01] MEDS: SODIUM CHLORIDE 0.9% 1,000 ML IV STA ×3 (09:23→10:24)
[2024-06-01] MEDS: ONDANSETRON 4 MG/2 ML VIAL IVP STA (09:24)
[2024-06-01] MEDS: FAMOTIDINE 20 MG/2 ML VIAL IV STA (09:24)
[2024-06-01] MEDS: HYDROmorphone 1 MG/ML 1 ML SYRINGE IVP STA ×3 (09:24→10:57)
[2024-06-01 09:41] LABS: INR 1.4 (<1.2); Partial Thromboplastin Time 25.8 sec (22.0-30.0); Prothrombin Time 14.3 sec (10.0-12.5)
[2024-06-01 09:45] LABS: AST 26 U/L (17-59); African American GFR (CKD) >90 (>60 ml/min/1.73 sqM); Albumin 3.5 g/dL (3.5-5.0); Alkaline Phosphatase 125 U/L (38-126); Amylase 31 U/L (30-110); Anion Gap 13 mmol/L; Blood Urea Nitrogen 14 mg/dL (9-20); Calcium 8.7 mg/dL (8.4-10.2); Carbon Dioxide 25 mmol/L (22-30); Chloride 97 mmol/L (98-107); Glucose 138 mg/dL (74-99); Lipase 26 U/L (23-300); Non-African American GFR(CKD) >90 (>60 ml/min/1.73 sqM); Sodium 135 mmol/L (137-145); Total Bilirubin 1.4 mg/dL (0.2-1.3); Total Protein 6.9 g/dL (6.3-8.2)
[2024-06-01 09:47] LABS: Anisocytosis Slight; HCT 37.5 % (39.0-53.0); HGB 11.6 gm/dL (13.0-17.5); Hypochromasia Moderate; MCH 26.8 pg (25.0-35.0); MCHC 30.9 g/dL (31.0-37.0); Mean Platelet Volume 9.4; Platelet Count 271 k/uL (150-450); RBC 4.32 m/uL (4.30-5.90); RDW 16.8 % (11.5-15.5); WBC 3.3 k/uL (3.8-10.6)
[2024-06-01 09:48] LABS: MCV 86.7 fL (80.0-100.0)
[2024-06-01 09:57] LABS: ALT 19 U/L (4-49)
--- NOTE | 2024-06-01 10:05 | XR ---
EXAMINATION TYPE: XR abdomen acute w cxr DATE OF EXAM: 06/01/2024 9:49 AM COMPARISON: None. CLINICAL INDICATION: Male, 63 years old with history of abp, TECHNIQUE: Single view of the chest and 2 views of the abdomen are submitted. FINDINGS: Single view of the chest fails demonstrate evidence for acute pulmonary disease. Bubbles of free air left upper quadrant. The bowel gas pattern is unremarkable as there is air throughout nondilated small and large bowel. No sizeable air fluid levels.No mass effects are seen. No unusual calcifications. G-tube noted to be in place. Catheter noted left upper quadrant. IMPRESSION: 1. Bubbles of free air left upper quadrant. 2. No obstructive changes seen. [facility], , 06/01/2024 10:03 AM
[2024-06-01] MEDS: PIPERACILLIN-TAZOBACTAM 3.375 GM in SODIUM CHLORIDE 0.9% 100 ML IVPB STA (10:24)
--- NOTE | 2024-06-01 10:26 | CT ---
EXAMINATION TYPE: CT abdomen pelvis w con CT DLP: 655.2 mGycm, Automated exposure control for dose reduction was used. DATE OF EXAM: 06/01/2024 10:00 AM COMPARISON: Multiple CT Abdomen Pelvis with most recent 04/14/24 CLINICAL INDICATION:Male, 63 years old with history of abdominal pain; severe abd pain, known liver C A and pancreatic cyst TECHNIQUE: Standard CT of the abdomen and pelvis following the administration of 100 cc of Isovue 3 00 IV contrast material. Coronal and sagittal reformats were performed. FINDINGS: LOWER CHEST: Minimal posterior dependent right lower lobe subsegmental atelectasis is noted. ABDOMEN LIVER: Multiple new and enlarging hypodense lesions throughout the liver. Examples include a right he patic dome lesion measuring 3 cm, previously measured 1.3 cm (series 201, image 7). And a right hepat ic lobe 2.8 cm lesion (series 201, image 13), previously measured 1.4 cm. The main portal vein with i ts branches and the SMV are patent. There is occlusion of the SMV. Focal narrowing of the portal veno us confluence redemonstrated. GALLBLADDER AND BILE DUCTS: Similar distended gallbladder. Similar mild intra and extrahepatic biliar y ductal dilatation with tapering at the pancreatic head. Common bile duct measures up to 1.6 cm. PANCREAS: Redemonstration of edematous appearance and increase surrounding fluid around the pancreas with tail and pigtail catheter extending into the gastric lumen. No overt pancreatic ductal dilatatio n. There is an ill-defined fluid collection identified in the region of the pancreatic tail with drai nage catheter extending from this region into the stomach lumen again. SPLEEN: New abnormal appearance of the spleen with wedge-shaped low-attenuation regions and gas ident ified ADRENAL GLANDS: Unremarkable. KIDNEYS AND URETERS: No evidence of hydronephrosis or renal calculus. The kidneys enhance symmetrical ly. Contrast is demonstrated within both collecting systems on the delayed phase. PELVIS BLADDER: Incompletely distended but grossly unremarkable. REPRODUCTIVE: Coarse calcifications of the prostate gland are identified. ABDOMEN & PELVIS STOMACH AND BOWEL: Interval placement of percutaneous GJ tube with decreased distention of the stomac h from prior exam. Abnormal appearance of the stomach redemonstrated with gastric wall hyperenhanceme nt. Percutaneous jejunostomy tube identified. There is ill-defined low attenuation involving the body of the stomach lesser curvature with foci of gas at site of previously seen pseudocyst. Distal colon ic diverticulosis without evidence for acute diverticulitis. Long segment circumferential wall thicke darshan of the small bowel identified. No pneumatosis. No evidence for obstruction. PERITONEUM: Increased moderate volume ascites. Pneumoperitoneum demonstrated with free air demonstrat ed most prominently within the anterior upper abdomen and left upper quadrant. Just superior to the s pleen as a developing fluid collection measuring 9.2 x 5.1 cm cyst with some peripheral enhancing wal l. VASCULATURE: Similar atherosclerotic calcifications are present throughout the abdominal aorta and it s branches. No evidence of aortic aneurysm. MUSCULOSKELETAL: No acute osseous abnormalities. Osteoarthritic changes of both hips. Degenerative ch anges of the spine. Most pronounced at L5-S1. Multilevel facet arthropathy lower lumbar spine. LYMPH NODES: No gross evidence for lymphadenopathy. SOFT TISSUE/ABDOMINAL WALL: Umbilical hernia containing ascites. Diffuse anasarca. IMPRESSION: 1. Development of pneumoperitoneum likely related to gastric perforation. There is predominantly foc i of gas identified within the left upper quadrant at site of pseudocyst drainage abutting the stomac h. Ill-defined fluid/gas with wedge-shaped low-density appearance of the spleen suspicious for infarc t/infiltration of gastric/pseudocyst contents. 2. Increased moderate volume ascites with development of partially organized fluid collection above the spleen measuring up to 9.2 cm. 3. Redemonstration of abnormal edematous ill-defined low attenuating appearance of the pancreas with ill-defined fluid/inflammation primarily within the body and tail. 4. Progression of hepatic hepatic liver metastasis/cancer with multiple new and enlarging hepatic le sions. 5. Enteritis which is likely reactive versus related to infectious/inflammatory process. 6. 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 Findings called to and discussed with Dr. Urbano Villaseñor at 10:23 AM on 06/01/2024. [facility], , 06/01/2024 10:23 AM
[2024-06-01 10:36] LABS: Band Neutrophils % 9 %; Lymphocytes # (M) 0.76 k/uL (1.0-4.8); Metamyelocytes % 3 %; Neutrophils % (M) 60 %; Nucleated Red Blood Cells 0 /100 WBC (0-0); Total Cells Counted 200
[2024-06-01 10:59] VITALS: BP 137/91; PULSE 105; RESP 24
== END 2024-06-01 11:02 | disposition other institution (70) ==
LOC: EC 09:02
DX: K63.1 Perforation of intestine (nontraumatic) (principal); D73.5 Infarction of spleen; C78.89 Secondary malignant neoplasm of other digestive organs; C78.7 Secondary malignant neoplasm of liver and intrahepatic bile duct; F17.200 Nicotine dependence, unspecified, uncomplicated
CPT/HCPCS: 36415; 93005; 80053; 82150; 83605; 83690; 85025; 85610; 85730; 87040; 74022; 74177; 99291; 96365; 96375 ×3; 96376 ×2; 96361; J2543; J2405; J3490; J1171; Q9967

== ENCOUNTER 2024-06-07 15:17 | Inpatient (IN) | payer MEDICAID, OTHER ==
[2024-06-07] MEDS: HYDROmorphone 1 MG/ML 1 ML SYRINGE IVP STA (15:33)
[2024-06-07] MEDS ORDERED: ATROPINE OPHTH SOLN 1% 5ML BTL SUBLINGUAL PRN (15:56)
[2024-06-07] MEDS ORDERED: ACETAMINOPHEN SUPPOSITORY 650 MG SUPP RECTAL PRN (15:56)
[2024-06-07] MEDS ORDERED: DRY MOUTH SPRAY 59 SPRAY/59 ML SPRAY MUCOUS MEM PRN (15:56)
--- NOTE | 2024-06-07 16:11 | ED ---
Abdominal Pain HPI - General Chief Complaint: Abdominal Pain Stated Complaint: Pain Time Seen by Provider: 06/07/24 15:25 Source: EMS Mode of arrival: EMS Limitations: no limitations - History of Present Illness Initial Comments: 63-year-old male with past medical history of pancreatitis who presents to the emergency department with intractable abdominal pain. Patient is on hospice. He does have pain medications ordered at home. It was reported by the hospice nurse that the pain medications were not enough. Patient was in intractable pain. They recommended that the patient be transferred to the hospital for additional pain control. They were considering a pain pump however this would take too long to get to the patient's house. Patient was agreeable to inpatient hospice. He does report to diffuse abdominal pain. EMS did provide him with 100 mics of fentanyl. No other alleviating, precipitating or modifying factors - Related Data Home Medications Medication Instructions Recorded Confirmed LORazepam [Ativan] 0.5 mg PO Q4H PRN 06/07/24 06/07/24 MORPHINE ORAL EILEEN CONC 20mg/mL 15 mg PO Q2H PRN 06/07/24 06/07/24 [Roxanol Oral Soln Conc 20MG/ML] Allergies Allergy/AdvReac Type Severity Reaction Status Date / Time No Known Allergies Allergy Verified 06/07/24 15:27 Review of Systems ROS Statement: Those systems with pertinent positive or pertinent negative responses have been documented in the HPI. ROS Other: All systems not noted in ROS Statement are negative. Past Medical History Past Medical History: Cancer Additional Past Medical History / Comment(s): pancreatitis. cyst on pancreas History of Any Multi-Drug Resistant Organisms: None Reported Past Surgical History: No Surgical Hx Reported, Bowel Resection Additional Past Surgical History / Comment(s): abd surgery stent placed in January 2024 removed 03/2024. gastric tube Past Psychological History: No Psychological Hx Reported Smoking Status: Current every day smoker Past Alcohol Use History: Occasional Past Drug Use History: Marijuana General Exam Limitations: physical limitation (Pain) General appearance: alert, in distress ENT exam: Present: mucous membranes dry Respiratory exam: Present: normal lung sounds bilaterally. Absent: respiratory distress, wheezes, rales, rhonchi, stridor Cardiovascular Exam: Present: tachycardia GI/Abdominal exam: Present: tenderness, rigid Psychiatric exam: Present: anxious Skin exam: Present: warm, dry, intact, normal color. Absent: rash Course Vital Signs 06/07/24 15:25 Temperature 98.4 F Pulse Rate 117 H Respiratory 20 Rate Blood Pressure 125/95 O2 Sat by Pulse 95 Oximetry Medical Decision Making - Medical Decision Making Was pt. sent in by a medical professional or institution (LEILA Maki, MANAGER COMPENSATION, urgent care, hospital, or prison...) When possible be specific @ -Patient was sent in by his hospice nurse Did you speak to anyone other than the patient for history (EMS, parent, family, police, friend...)? What history was obtained from this source @ -I spoke with case management in regards to the patient's care Did you review nursing and triage notes (agree or disagree)? Why? @ -I reviewed and agree with nursing and triage notes Were old charts reviewed (outside hosp., previous admission, EMS record, old EKG, old radiological studies, urgent care reports/EKG's, prison records)? Report findings @ -No old charts were reviewed Differential Diagnosis (chest pain, altered mental status, abdominal pain women, abdominal pain men, vaginal bleeding, weakness, fever, dyspnea, syncope, headache, dizziness, GI bleed, back pain, seizure, CVA, palpatations, mental health, musculoskeletal)? @ -Differential Abdominal Pain Men: Appendicitis, cholecystitis, diverticulosis, ischemic bowel, pancreatitis, hepatitis, UTI, gastroenteritis, AAA, incarcerated hernia, bowel obstruction, constipation, inflammatory bowel, hepatitis, peptic ulcer disease, splenic infarction, perforated viscus, testicular torsion, this is not meant to be an all-inclusive list EKG interpreted by me (3pts min.). @ -Not done X-rays interpreted by me (1pt min.). @ -None done CT interpreted by me (1pt min.). @ -None done U/S interpreted by me (1pt. min.). @ -None done What testing was considered but not performed or refused? (CT, X-rays, U/S, labs)? Why? @ -None What meds were considered but not given or refused? Why? @ -None Did you discuss the management of the patient with other professionals (professionals i.e. LEILA Maki, MANAGER [employer], lab, RT, psych nurse, social media marketing manager, uke operator, teacher, parole hearing officer, director of casework)? Give summary @ -Spoke with case management, hospice nurse and admitting team. Foreign juarez does present to the ED to see the patient Was smoking cessation discussed for >3mins.? @ -No Was critical care preformed (if so, how long)? @ -No Were there social determinants of health that impacted care today? How? (Homelessness, low income, unemployed, alcoholism, drug addiction, transportation, low edu. Level, literacy, decrease access to med. care, fpc, rehab)? @ -No Was there de-escalation of care discussed even if they declined (Discuss DNR or withdrawal of care, Hospice)? DNR status @ -Yes, patient is actively on hospice however home medications are not con trolling his pain What co-morbidities impacted this encounter? (DM, HTN, Smoking, COPD, CAD, Cancer, CVA, ARF, Chemo, Hep., AIDS, mental health diagnosis, sleep apnea, morbid obesity)? @ -Pancreatic cancer Was patient admitted / discharged? Hospital course, mention meds given and route, prescriptions, significant lab abnormalities, going to OR and other pertinent info. @ -Upon arrival patient seen and evaluated in bed 10. Thorough history and physical exam was performed. Patient was sent in due to uncontrolled pain. I did order pain medications. Patient will be admitted to hospice inpatient. Spoke with Foreign edwards [facility] who will follow the admission Undiagnosed new problem with uncertain prognosis? @ -No Drug Therapy requiring intensive monitoring for toxicity (Heparin, Nitro, Insul in, Cardizem)? @ -No Were any procedures done? @ -No Diagnosis/symptom? @ -Acute on chronic abdominal pain, pancreatic cancer Acute, or Chronic, or Acute on Chronic? @ -Acute on chronic Uncomplicated (without systemic symptoms) or Complicated (systemic symptoms)? @ -Complicated Side effects of treatment? @ -No Exacerbation, Progression, or Severe Exacerbation? @ -No Poses a threat to life or bodily function? How? (Chest pain, [place], [place], pneumonia, PE, COPD, DKA, ARF, appy, cholecystitis, CVA, Diverticulitis, Homicidal, Suicidal, threat to staff... and all critical care pts) @ -Yes as patient will most likely succumb to his illness Disposition Clinical Impression: Abdominal pain, Pancreas cancer Disposition: ADMITTED IP TO THIS HOSP Is patient prescribed a controlled substance at d/c from ED?: No Time of Disposition: 16:11 Decision to Admit Reason: Admit from EC Decision Date: 06/07/24 Decision Time: 16:11
[2024-06-07] MEDS: LORazepam 2 MG/ML INJ IV PRN (16:16)
--- NOTE | 2024-06-07 16:31 | P.HPIM ---
History of Present Illness H&P Date: 06/07/24 History of Presenting Illness: Patient is a pleasant 63-year-old male who was admitted to outpatient hospice secondary to pancreatic adenocarcinoma with metastasis to liver, history of alcohol abuse, and nicotine dependence. Patient was diagnosed with pancreatic cancer 5 weeks ago after presenting with severe abdominal pain and nausea and vomiting. At this time he was also found to have a duodenal obstruction and underwent surgery for sleeve duodenectomy with gastric feeding tube placement at [facility]. Patient was evaluated by oncologist and was told that there were no treatment options available at this time and recommended hospice. Patient signed on with [facility] and was receiving home hospice care. However patient's pain became unmanageable by home hospice team and per recommendations of hospice nurse patient was admitted to inpatient [facility] hospice under services. Patient seen and fully evaluated in the emergency department room 10. He is currently reporting uncontrolled abdominal pain and nausea. Patient being medicated with Dilaudid at this time and orders placed for comfort care measures including morphine drip. Discussed with patient medications available and goals of care/treatment. therapeutic consultant at bedside following and updating patient's family. RN reports patient's family currently with car travel but will be to facility shortly. Patient denies having any other needs or concerns at this time requesting only for assistance with pain management and comfort care. Review of systems: Pertinent positives and negatives as discussed in HPI, a complete review of systems was performed and all other systems are negative. Physical exam: Vital signs reviewed and stable. General: Nontoxic, no distress and appears stated age. Derm: Skin warm and dry, normal coloration for ethnicity. Head: Atraumatic, normocephalic and symmetric. Eyes: EOM's intact, no lid lag, and anicteric sclera Mouth: no lip lesions, mucus membranes moist Cardiovascular: regular rate and rhythm with normal S1S2, no murmur, positive posterior tibial pulses bilaterally, and cap refill < 2 seconds. Lungs: Respirations even, regular, and unlabored on room air. Lungs CTA bilaterally, no rhonchi, no rales, no wheezing, and no accessory muscle usage. Abdominal: Taut and distended with diffuse tenderness throughout. PEG tube in place. Ext: ROM intact. No gross muscle atrophy, no edema, no contractures Neuro: Speech clear, face symmetrical and CN II-XII grossly intact with no noted focal neuro deficits Psych: Alert and oriented to person, place, time, and situation. Appropriate and pleasant affect. Assessment and Plan of Care: Metastatic pancreatic adenocarcinoma Intractable abdominal pain, nausea, and vomiting. Secondary to above History of alcohol abuse Nicotine dependence -Comfort measures only. -Symptomatic care and pain management. -Tylenol suppository 650 mg rectally every 4 hours as needed for fever and/or mild pain. -Artificial teardrops to bilateral eyes every 2 hours as needed for dry eyes. -Scopolamine patch. -Order placed for sublingual atropine drops and Robinul for excess secretions. -Zofran as needed for nausea and/or vomiting. -Initiate morphine infusion 1 mg/h and titrate as needed to maintain patient's c omfort. -Morphine 4 mg IVP every 15 minutes as needed for severe uncontrolled breakthrough pain. -Ativan 1 mg IVP every 6 hours as needed for agitation or acute anxiety. Patient was seen independently by Nurse Practitioner. This document was prepared using [employer] dictation software. Please allow for errors in performance tester while rare they do occur. Foreign Jackson NP rendered care for this patient independently, reviewed the findings and plan as documented in the note above and agree with plan. I did not physically speak with or examine the patient on this date. Past Medical History Past Medical History: Cancer Additional Past Medical History / Comment(s): pancreatitis. cyst on pancreas History of Any Multi-Drug Resistant Organisms: None Reported Past Surgical History: No Surgical Hx Reported, Bowel Resection Additional Past Surgical History / Comment(s): abd surgery stent placed in January 2024 removed 03/2024. gastric tube Past Psychological History: No Psychological Hx Reported Smoking Status: Current every day smoker Past Alcohol Use History: Occasional Past Drug Use History: Marijuana Medications and Allergies Home Medications Medication Instructions Recorded Confirmed Type LORazepam [Ativan] 0.5 mg PO Q4H PRN 06/07/24 06/07/24 History MORPHINE ORAL EILEEN CONC 20mg/mL 15 mg PO Q2H PRN 06/07/24 06/07/24 History [Roxanol Oral Soln Conc 20MG/ML] Allergies Allergy/AdvReac Type Severity Reaction Status Date / Time No Known Allergies Allergy Verified 06/07/24 15:27 Physical Exam Vitals: Vital Signs Temp Pulse Resp BP Pulse Ox 06/07/24 15:25 98.4 F 117 H 20 125/95 95 Intake and Output 06/07/24 06/07/24 06/07/24 06:59 14:59 22:59 Other: Weight 49.895 kg
[2024-06-07] MEDS: MORPHINE SULFATE 4 MG/ML SYRINGE IV PRN (16:38)
[2024-06-07] MEDS: ONDANSETRON 4 MG/2 ML VIAL IVP PRN (16:38)
[2024-06-07] MEDS: MORPHINE SULFATE (100 MG/2 ML) 100 MG in SODIUM CHLORIDE 0.9% 100 ML IV SCH (17:13)
[2024-06-07] MEDS ORDERED: HYDROmorphone 1 MG/ML 1 ML SYRINGE IVP PRN (18:54)
[2024-06-07] MEDS ORDERED: ACETAMINOPHEN TAB 325 MG TAB PO PRN (18:54)
[2024-06-07] MEDS ORDERED: ARTIFICIAL TEARS-HYPROMELLOSE DROPS 15 ML BTL BOTH EYES PRN (18:54)
[2024-06-07 19:44] VITALS: BP 94/66; PULSE 111; RESP 19; TEMP 97.8
[2024-06-08] MEDS: PROCHLORPERAZINE INJ 10 MG/2 ML VIAL IVP PRN (11:00)
--- NOTE | 2024-06-08 12:41 | P.PN ---
Subjective Progress Note Date: 06/08/24 Hospital Course: Patient is a pleasant 63-year-old male who was admitted to outpatient hospice secondary to pancreatic adenocarcinoma with metastasis to liver, history of alcohol abuse, and nicotine dependence. Patient was diagnosed with pancreatic cancer 5 weeks ago after presenting with severe abdominal pain and nausea and vomiting. At this time he was also found to have a duodenal obstruction and underwent surgery for sleeve duodenectomy with gastric feeding tube placement at [facility]. Patient was evaluated by oncologist and was told that there were no treatment options available at this time and recommended hospice. Patient signed on with [facility] and was receiving home hospice care. However patient's pain became unmanageable by home hospice team and per recommendations of hospice nurse after discussion with physician, patient sent to our facility for admission to [facility] inpatient hospice under our services. Physical exam: Patient was seen and fully evaluated at bedside this morning. He reports pain improved, but continues to be uncontrolled. He is also reporting continued nausea and occasional dry heaves not relieved by Zofran. Orders placed for Compazine at this time. Discussed titrating up pain medication with RN for optimal pain control. Vital signs reviewed and stable. General: Chronically ill-appearing, thin and emaciated Derm: Skin warm and dry, normal coloration for ethnicity. Head: Atraumatic, normocephalic and symmetric. Eyes: EOM's intact, no lid lag, and anicteric sclera Mouth: no lip lesions, mucus membranes moist Cardiovascular: regular rate and rhythm with normal S1S2, no murmur, positive posterior tibial pulses bilaterally, and cap refill < 2 seconds. Lungs: Respirations even, regular, and unlabored on room air. Lungs CTA bilaterally, no rhonchi, no rales, no wheezing, and no accessory muscle usage. Abdominal: Taut and distended with diffuse tenderness throughout. PEG tube in place. Ext: ROM intact. No gross muscle atrophy, no edema, no contractures Neuro: Speech clear, face symmetrical and CN II-XII grossly intact with no noted focal neuro deficits Psych: Alert and oriented to person, place, time, and situation. Appropriate and pleasant affect. Assessment and Plan of Care: Metastatic pancreatic adenocarcinoma Intractable abdominal pain, nausea, and vomiting. Secondary to above History of alcohol abuse Nicotine dependence -Comfort measures only. -Symptomatic care and pain management. -Tylenol suppository 650 mg rectally every 4 hours as needed for fever and/or mild pain. -Artificial teardrops to bilateral eyes every 2 hours as needed for dry eyes. -Scopolamine patch. -Order placed for sublingual atropine drops and Robinul for excess secretions. -Zofran as needed for nausea and/or vomiting and added on Compazine 10 mg IVP every 6 hours for persistent nausea uncontrolled by Zofran. -Continue morphine infusion and titrate as needed to maintain patient's comfort. Patient currently on morphine infusion at 5 mg/h and discussed with nursing staff to titrate up per patient's reports of uncontrolled pain with goal to optimize comfort/pain control. -Morphine 4 mg IVP every 15 minutes as needed for severe uncontrolled breakthrough pain. -Ativan 1 mg IVP every 6 hours as needed for agitation or acute anxiety. Patient was seen independently by Nurse Practitioner. This document was prepared using C[employer] dictation software. Please allow for errors in artist's model while rare they do occur. Foreign Jackson NP rendered care for this patient independently, reviewed the findings and plan as documented in the note above and agree with plan. I did not physically speak with or examine the patient on this date. Objective - Vital Signs Vital signs: Vital Signs Temp 97.8 F 06/07/24 19:05 Pulse 111 H 06/07/24 19:05 Resp 19 06/07/24 19:05 BP 94/66 06/07/24 19:05 Pulse Ox 96 06/07/24 19:05 FiO2 Intake & Output 06/07/24 06/08/24 06/08/24 18:59 06:59 18:59 Intake Total 26.537 Output Total 200 Balance -173.463 Weight 49.895 kg Intake: Intake, IV Titration 26.537 Amount Morphine Sulfate (100 mg/ 26.537 2 ml) 100 mg In Sodium Chloride 0.9% 100 ml @ 1 MG/HR 1.02 mls/hr IV . Q24H [facility] Rx#:[id number] Output: Urine 200 Straight 100 Other: Voiding Method Diaper
[2024-06-08] MEDS: GLYCOPYRROLATE 0.2 MG/ML 2 ML VIAL IVP PRN (12:42)
[2024-06-08] MEDS: LORazepam 2 MG/ML INJ IV PRN (13:01)
[2024-06-08 16:03] VITALS: BMI 15.7
--- NOTE | 2024-06-08 17:24 | P.DS ---
Providers Date of admission: 06/07/24 15:56 Expected date of discharge: 06/08/24 Attending physician: Kolton Bonilla Primary care physician: [facility] Course: PATIENT IS . TIME OF WAS PRONOUNCED ON 06/08/24 AT 3:25 PM. Discharge Diagnosis: Metastatic pancreatic adenocarcinoma Intractable abdominal pain, nausea, and vomiting. Secondary to above History of alcohol abuse Nicotine dependence Hospital Course: Patient is a pleasant 63-year-old male who was admitted to outpatient hospice secondary to pancreatic adenocarcinoma with metastasis to liver, history of alcohol abuse, and nicotine dependence. Patient was diagnosed with pancreatic cancer 5 weeks ago after presenting with severe abdominal pain and nausea and vomiting. At this time he was also found to have a duodenal obstruction and underwent surgery for sleeve duodenectomy with gastric feeding tube placement at [facility]. Patient was evaluated by oncologist and was told that there were no treatment options available at this time and recommended hospice. Patient signed on with [facility] and was receiving home hospice care. However patient's pain became unmanageable by home hospice team and per recommendations of hospice nurse after discussion with physician, patient sent to our facility for admission to [facility] inpatient hospice under our services. Patient was placed on comfort measures only with hospice. Time of was pronounced on 06/08/2024 at 3:25 PM. RN reports that Hospice team was at bedside and notified pt's significant other Carolee Person of patient's passing at this time. This document was prepared using [employer] dictation software. Please allow for errors in engineering job titles while rare they do occur. Foreign Jackson NP rendered care for this patient independently, reviewed the findings and plan as documented in the note above. I did not physically speak w ith or examine the patient on this date. Plan - Discharge Summary Discharge Rx Participant: No New Discharge Prescriptions: No Action MORPHINE ORAL EILEEN CONC 20mg/mL [Roxanol Oral Soln Conc 20MG/ML] 15 mg PO Q2H PRN PRN Reason: Pain LORazepam [Ativan] 0.5 mg PO Q4H PRN PRN Reason: Anxiety/Restlessness Discharge Medication List LORazepam [Ativan] 0.5 mg PO Q4H PRN 06/07/24 [History] MORPHINE ORAL EILEEN CONC 20mg/mL [Roxanol Oral Soln Conc 20MG/ML] 15 mg PO Q2H PRN 06/07/24 [History] Follow up Appointment(s)/Referral(s): [facility] [NON-STAFF] - 1-2 days
== END 2024-06-08 17:25 | disposition expired | DRG 951 ==
LOC: EC 15:17 → 5NMEDONC 15:56
PROVIDERS: ADMIT Student in an Organized Health Care Education/Training Program; ATTEND Student in an Organized Health Care Education/Training Program
DX: Z51.5 Encounter for palliative care (principal); C25.9 Malignant neoplasm of pancreas, unspecified; C78.7 Secondary malignant neoplasm of liver and intrahepatic bile duct; Z66 Do not resuscitate
CPT/HCPCS: 96374; 96375; 99285